=== PATIENT | male | born 1950 | race Caucasian/White ===

== ENCOUNTER 2018-10-24 04:36 | Emergency (ER) | payer MEDICARE | END 2018-10-24 05:10 | disposition home or self-care (01) | LOC: ERS 04:36 | DX: T83.031A Leakage of indwelling urethral catheter, initial encounter (principal); I10 Essential (primary) hypertension | CPT/HCPCS: 99283 ==

== ENCOUNTER 2019-07-30 18:41 | Inpatient (IN) | payer MEDICARE ==
[2019-07-30 21:02] LABS: CKMB 0.7 ng/mL (0-6.6)
[2019-07-30] MEDS ORDERED: Ondansetron PF 4 MG/2 ML Vial IVP PRN (22:51)
[2019-07-30] MEDS ORDERED: Ondansetron ODT 4 MG TAB SL PRN (22:51)
[2019-07-30] MEDS ORDERED: Acetaminophen 325 MG TAB PO PRN (22:51)
[2019-07-30] MEDS ORDERED: Piperacillin/Tazobactam 4.5 GM in Sodium Chloride 0.9% 100 ML IVPB SCH (23:59)
--- NOTE | 2019-07-31 01:10 | PDOC.FPRHP ---
- History of Present Illness Chief Complaint: fever, cough History of Present Illness: Patient is a 68M with PMHx of HTN, COPD, CHF, afib s/p pacemaker, cardiomyopathy , prostate cancer, stage 3 CKD who presents as a transfer from the [place] ED for CHF exacerbation, CATHERINE,and UTI. Patient was difficult to arouse during the exam, and was a poor historian A& Ox2. He was able to report that he has had a cough, and that he denies cp or sob. ED Course: Was on cpap at the [place] ED and was satting 82%, until it was discovered that the machine was not hooked up properly. On RA the patient was able to maintain oxygen saturation on RA. He also received a dose of zosyn and 40 of lasix. He received vanc and zosyn here for a possible pna - Allergies/Adverse Reactions Allergies Allergy/AdvReac Type Severity Reaction Status Date / Time No Known Allergies Allergy Verified 07/30/19 23:27 - Home Medications Medication Instructions Recorded Confirmed Type Bicalutamide [Casodex] 50 mg PO DAILY #30 tab 03/07/17 07/30/19 Rx Tamsulosin HCl [Flomax] 0.4 mg PO DAILY #30 cap 03/07/17 07/31/19 Rx Aspirin [Ecotrin Low Strength] 81 mg PO DAILY #30 tab 07/09/17 07/31/19 Rx Carvedilol [Coreg] 6.25 mg PO BID-WM #60 tab 07/10/17 07/31/19 Rx Furosemide [Lasix] 40 mg PO BID #60 tab 07/10/17 07/31/19 Rx Clopidogrel Bisulfate [Clopidogrel] 75 mg PO DAILY 07/30/19 07/31/19 History Acetaminophen 650 mg PO Q4HR PRN 07/31/19 07/31/19 History Atorvastatin Calcium 40 mg PO DAILY 07/31/19 07/31/19 History Isosorbide Mononitrate [Isosorbide 30 mg PO DAILY 07/31/19 07/31/19 History Mononitrate ER] Nitroglycerin [Nitrostat] 0.4 mg SL ASDIR PRN 07/31/19 07/31/19 History Oxybutynin [Ditropan] 5 mg PO TID 07/31/19 07/31/19 History Pantoprazole Sodium 40 mg PO DAILY 07/31/19 07/31/19 History traMADol HCl [Tramadol HCl] 50 mg PO Q6HR PRN 07/31/19 07/31/19 History - History PMHx: HTN, COPD, CHF, afib s/p pacemaker, cardiomyopathy, prostate cancer, stage 3 CKD, bilateral hydronephrosis PSHx: colon resection, pacemaker, skin graft? FHx: unable to determine Social: negative - Vital signs BP: [123/75] HR: [80] RR: [18] Tmax: [102.1] Pox: [98]% on [ra] Wt: [101.9kg] - Physical Exam Constitutional: NAD, well developed -Constitutional: A&Ox2 HEENT: normocephalic and atraumatic, grossly normal hearing Neck: supple, trachea midline Chest: no-tender to palpation, no lesions Heart: pulses present -Heart: paced -Lungs: poor air movement, crackles on lower lobes bilaterally Abdomen: soft, non-tender, bowel sounds present Musculoskeletal: normal structure, normal tone Neurological: no focal deficit, normal sensation Skin: no rash/lesions -Skin: poor skin turgor, delayed cap refill Heme/Lymphatic: no unusual bruising or bleeding, no purpura Psychiatric: other (poor intact memory) FMR H&P: Results - Labs Result Diagrams: 07/31/19 05:10 08/03/19 04:19 Lab results: Lactic Acid 1.2 mmol/L (0.5-2.2) 07/30/19 20:12 CK-MB (CK-2) 0.7 ng/mL (0-6.6) 07/30/19 20:12 - Radiology Interpretation Chest x-ray Status: image reviewed by me (no acute cardiopulmonary process, however the image is poor quality), report reviewed by me FMR H&P: A/P - Problem List (1) Acute exacerbation of CHF (congestive heart failure) Current Visit: Yes Status: Acute Code(s): I50.9 - HEART FAILURE, UNSPECIFIED (2) Abnormal cardiac enzyme level Current Visit: No Status: Acute Code(s): R74.8 - ABNORMAL LEVELS OF OTHER SERUM ENZYMES (3) Prostate cancer Current Visit: No Status: Chronic Code(s): C61 - MALIGNANT NEOPLASM OF PROSTATE Comment: Urology following.On Casodex (4) UTI (urinary tract infection) Current Visit: No Status: Acute (5) CKD (chronic kidney disease) stage 3, GFR 30-59 ml/min Current Visit: No Status: Chronic Code(s): N18.3 - CHRONIC KIDNEY DISEASE, STAGE 3 (MODERATE) (6) Cardiorenal syndrome Current Visit: Yes Status: Acute Code(s): I13.10 - HYP HRT & CHR KDNY DIS W/ O HRT FAIL, W STG 1-4/UNSP CHR KDNY (7) Encephalopathy Current Visit: Yes Status: Acute Code(s): G93.40 - ENCEPHALOPATHY, UNSPECIFIED (8) Acute kidney injury superimposed on CKD Current Visit: Yes Status: Acute Code(s): N17.9 - ACUTE KIDNEY FAILURE, UNSPECIFIED; N18.9 - CHRONIC KIDNEY DISEASE, UNSPECIFIED - Plan Patient is a 68M with PMHx of HTN, COPD, CHF, afib s/p pacemaker, cardiomyopathy , prostate cancer, stage 3 CKD who presents as a transfer from the [place] ED for CHF exacerbation, CATHERINE,and UTI. #Acute on chronic diastolic CHF exacerbation -patient's BNP 2895 -bilateral lower lobe crackles on exam -patient's cough likely 2/2 fluid overload -IV lasix, titrate as necessary -last echo in 2016, suggestive of diastolic heart failure, repeat ordered #CATHERINE on CKD stage 3 #cardiorenal syndrome -creatinine 2.21, baseline around 1.5 -GFR 30, was 46 on 05/06/19 -likely due to fluid overload -will continue to monitor for improvement with diuresis #UTI -received zosyn, vanc, and levaquin in ED -last few urine cultures were resistant to streptomycin, erythromycin, and tetracycline -switched to rocephin -will continue to monitor #NSTEMI type 2 secondary to demand -troponins elevated 0.032>0.041>0.037, improved with lasix -EKG showed no acute changes -patient denied cp #encephalopathy -patient was difficult to arouse on exam, a&ox2 -nobody was with patient during evaluation, will f/u patient's baseline and monitor possible improvement with abx DVT proph: lovenox Diet: HH Dispo: inpatient for CHF exacerbation and CATHERINE management and iv abx tx of UTI Code: Full FMR H&P: Upper Level - Pertinent history 68 yo m Here as transfer from [facility] with concern for CHF exacerbation. At the time of this H&P pt was unable to reliably answer questions and it is unclear if this is his baseline. Per ER/NH records, he has been coughing for the past week and was sent to the ER for possible PNA. While there he was apparently hypoxic, however this was never documented. He also had a fever as high as 102.6. He was transferred here with concern for CHF exacerbation and possible PNA. In the ED he received Zosyn, Vanc, and Levaquin PMHx HLD HTN CAD CHF GERD BPH CKD3 Afib Surgical hx Colon resection Skin graft Pace maker placement Social Hx Unable to determine - Pertinent findings See commercial intern note for full ROS, PE, vitals, and labs ROS unreliable dt mental status General denies fever or chills CV Denies CP, palpitation, or peripheral edema Resp Denies of SOB or cough GI Denies n/v/d or abdominal pain denies increased frequency or dysuria PE General A&O to place and self, NAD HEENT NCAT, PERRLA CV RRR no murmur Resp crackles in L base. Decreased breath sounds throughouth Abd non tender, no distension, normal BS Extremities 1+ pitting edema to knee b/l, healing skin graft on L anterior thigh and posterior L wrist Neuro No focal deficits, normal strength astudillo in place - Plan Date/Time: 07/31/19 0110 IJeovanny DO, have evaluated this patient and agree with findings/plan as outlined by commercial intern resident. Pertinent changes/additions are listed here. 1.CHF exacerbation -IV Lasix and strict I/O. No O2 requirement at this time -Restart home meds -Echo, most recent known is in 2017 and found EF of 40-45% and diastolic failure -CXR here is not c/w PNA, will deescalate abx at this time 2.UTI -IV rocephin -Urine cx pending -Likely related to chronic Astudillo 3.CATHERINE on CKD -Like cardio renal syndrome -Repeat BMP in am 4.NSTEMI type 2 secondary to demand -Down trending. Likely related to overload 5.Encephalopathy -Unclear what patients baseline is, will discuss with Dr Carson in the morning See commercial intern note for management of other chronic problems PPx SCD Diet HH Code Full Addendum - Attending - Attending Attestation Date/Time: 08/03/19 5602 I personally evaluated the patient and discussed the management with Dr. Young and team at day of admission. I agree with the History, Examination, Assessment and Plan documented above with any addition or exceptions noted below.
[2019-07-31] MEDS: cefTRIAXone\\ROCEPHIN 1 GM in Sodium Chloride 0.9% 100 ML IVPB SCH (01:59)
[2019-07-31] MEDS ORDERED: Nitroglycerin 0.4 MG TAB (25 Tab Bottle) SL PRN (04:32)
[2019-07-31] MEDS ORDERED: traMADol HCl 50 MG TAB PO PRN (04:32)
[2019-07-31 05:37] LABS: #Neutrophils 6.6 thou/uL (1.40-6.50); %Basophils 0.9 % (0.0-1.0); %Eosinophils 0.1 % (0.0-10.0); %Lymphocytes 4.8 % (21.0-51.0); %Monocytes 3.1 % (0.0-10.0); Hemoglobin 12.8 g/dL (14.0-18.0); Mean Corpuscular HGB CONC 31.5 g/dL (32.0-36.0); Mean Corpuscular Hemoglobin 26.5 pg (27.0-31.0); Mean Platelet Volume 9.2 fL (7.4-10.4); Platelet Count 158 thou/uL (130-400); RBC Distribution Width 15.9 % (11.5-14.5); Red Blood Cell (RBC) Count 4.84 mill/uL (4.70-6.10); White Blood Cell (WBC) Count 7.3 thou/uL (4.8-10.8)
[2019-07-31 05:38] LABS: #Basophils 0.1 thou/uL (0.0-0.2); #Lymphocytes 0.4 thou/uL (1.20-3.40); #Monocytes 0.2 thou/uL (0.11-0.59)
[2019-07-31] MEDS: Furosemide 20 MG/2 ML VIAL SLOW IVP SCH ×2 (05:46→13:56)
[2019-07-31 05:58] LABS: Anion Gap 14 mmol/L (10-20); BUN (Urea Nitrogen) 38 mg/dL (8.4-25.7); Calc. Creatinine Clearance 46 mL/min (70-130); Calcium 9.4 mg/dL (7.8-10.44); Carbon Dioxide 23 mmol/L (23-31); Chloride 102 mmol/L (98-107); Estimated GFR-MDRD 32; Glucose 127 mg/dL (80-115); Potassium 3.8 mmol/L (3.5-5.1); Sodium 135 mmol/L (136-145)
--- NOTE | 2019-07-31 06:04 | PDOC.FM ---
- Subjective Subjective: Pt states he can only walk 15-20 feet before becoming SOB. C/o awakening at night with PND. Denies orthopnea, or increase in LE swelling. Denies chest pain. Denies any dysuria or hematuria. Denies any pain this morning. States his SOB is much better than yesterday. - Objective MAR Reviewed: Yes Vital Signs & Weight: Vital Signs (12 hours) Temp Pulse Resp BP BP Pulse Ox 07/31/19 03:55 98.2 F 80 19 112/56 L 96 07/31/19 03:30 94 L 07/30/19 23:10 82 20 93 L 07/30/19 22:55 97.7 F 80 20 105/65 89 L Weight Weight 97.704 kg I&O: 07/29/19 07/30/19 07/31/19 06:59 06:59 06:59 Intake Total 100 Output Total 1000 Balance -900 Result Diagrams: 07/31/19 05:10 07/31/19 05:10 Radiology Reviewed by me: Yes (cardiomegaly on CXR) Phys Exam - Physical Examination Constitutional: NAD HEENT: moist MMs, sclera anicteric Neck: no nodes, supple, full ROM JVD present Respiratory: no wheezing slight bibasilar crackeles Cardiovascular: RRR, no significant murmur, no rub Gastrointestinal: soft, non-tender, no distention, positive bowel sounds Musculoskeletal: no edema, pulses present Neurological: non-focal, normal sensation, moves all 4 limbs Psychiatric: normal affect Deviation from normal: A&O X2. States the month is either July or August. Skin: no rash, cap refill <2 seconds Dx/Plan (1) Acute exacerbation of CHF (congestive heart failure) Code(s): I50.9 - HEART FAILURE, UNSPECIFIED Status: Acute (2) Acute kidney injury superimposed on CKD Code(s): N17.9 - ACUTE KIDNEY FAILURE, UNSPECIFIED; N18.9 - CHRONIC KIDNEY DISEASE, UNSPECIFIED Status: Acute (3) Cardiorenal syndrome Code(s): I13.10 - HYP HRT & CHR KDNY DIS W/O HRT FAIL, W STG 1-4/UNSP CHR KDNY Status: Acute (4) A-fib Code(s): I48.91 - UNSPECIFIED ATRIAL FIBRILLATION Status: Acute (5) UTI (urinary tract infection) Status: Acute (6) CKD (chronic kidney disease) stage 3, GFR 30-59 ml/min Code(s): N18.3 - CHRONIC KIDNEY DISEASE, STAGE 3 (MODERATE) Status: Chronic (7) Chronic diastolic CHF (congestive heart failure) Code(s): I50.32 - CHRONIC DIASTOLIC (CONGESTIVE) HEART FAILURE Status: Chronic (8) Prostate cancer Code(s): C61 - MALIGNANT NEOPLASM OF PROSTATE Status: Chronic (9) Troponin level elevated Code(s): R74.8 - ABNORMAL LEVELS OF OTHER SERUM ENZYMES Status: Resolved - Plan Plan: Patient is a 68M with PMHx of HTN, COPD, CHF, afib s/p pacemaker, cardiomyopathy , prostate cancer, stage 3 CKD who presents as a transfer from the [place] ED for CHF exacerbation, CATHERINE,and UTI. 1. Acute on chronic diastolic CHF exacerbation - Dyspnea on exertion of walking 15-20 feet, PND -patient's BNP 2895, CXR: cardiomegaly, AICD -bibasilar crackles on exam -patient's cough likely 2/2 volume overload, Procal 0.96, Will trend at 6 hours to monitor for infection. Given Vanc, Zosyn and levoquin in ED. -IV lasix 20 mg BID, titrate as necessary -last echo in 2017, suggestive of diastolic heart failure with EF of 40-45%, repeat ordered - Continue ASA, Clopidogrel, Imdur, Nitroglycerin, Carvedilol 2. CATHERINE on CKD stage 3 - Most likely caused by cardiorenal syndrome -creatinine 2.21, baseline 1.5-1.8 -GFR 30, was 46 on 05/06/19 -likely due to #1 -will continue to monitor for improvement post lasix. 3. UTI -received zosyn, vanc, and levaquin in ED -Previous urine cultures were resistant to streptomycin, erythromycin, and tetracycline -Continue Rocephin 3. Elevated troponins, most likely from increased cardiac wall/myocyte stress from volume overload. -troponins elevated 0.032>0.041>0.037, improved with lasix. Etiology likely secondary to CHF exacerbation and CKD stage 3 -EKG showed no acute changes -No subjective chest pain 4. Hx of COPD 5. Hx of A. Fib 6. S/P AICD Placement 7. Hx of Prostate CA - Bilateral hydronephrosis - Obstructive uropathy - Continue Casodex, tamsulosin and oxybutynin 8. Hx of HTN DVT proph: lovenox Diet: HH Code: Full Dispo: Stable, inpatient for CHF exacerbation, CATHERINE management and iv abx tx of UTI Addendum - Attending - Attending Attestation Date/Time: 07/31/19 1038 I personally evaluated the patient and discussed the management with Dr. Becerra. I agree with the History, Examination, Assessment and Plan documented above with any addition or exceptions noted below. Patient with with possible CHF exacerbation. Continue diuresis, Echo pending. Previously only had dCHF but will see if that has changed. He also has evidence of UTI and is on abx and will await cx. Feeling better today. Continue to monitor. No NSTEMI type 2 diagnosis made as no chest pain and no EKG changes suggestive of true acute ischemia.
[2019-07-31] MEDS: Oxybutynin 5 MG TAB PO SCH ×3 (09:34→20:16)
[2019-07-31] MEDS: Bicalutamide 50 MG TAB PO SCH (09:34)
[2019-07-31] MEDS: Enoxaparin Sodium 30 MG/0.3 ML SYRINGE SC SCH (09:35)
[2019-07-31] MEDS: Aspirin 81 mg Enteric Coated Tablet PO SCH (09:35)
[2019-07-31] MEDS: Tamsulosin HCl 0.4 MG CAP PO SCH (09:35)
[2019-07-31] MEDS: Isosorbide Mononitrate (ER) 30 MG TAB PO SCH (09:35)
[2019-07-31] MEDS: Clopidogrel Bisulfate 75 MG TAB PO SCH (09:35)
[2019-07-31] MEDS: Carvedilol 6.25 MG TAB PO SCH ×2 (09:35→16:16)
[2019-07-31] MEDS: Atorvastatin Calcium 40 MG TAB PO SCH (10:58)
[2019-08-01] MEDS: cefTRIAXone\\ROCEPHIN 1 GM in Sodium Chloride 0.9% 100 ML IVPB SCH (03:36)
--- NOTE | 2019-08-01 06:11 | PDOC.FM ---
- Subjective Subjective: Patient states he is slightly SOB at rest. He denies any chest pain or cough. Pt echo 10-15% EF result. Stable vitals. I/O: 1282/1775 measured via astudillo cath. - Objective MAR Reviewed: Yes Vital Signs & Weight: Vital Signs (12 hours) Temp Pulse Resp BP Pulse Ox 08/01/19 05:00 113/62 07/31/19 21:00 98.5 F 80 18 142/56 H 94 L 07/31/19 20:00 97 07/31/19 18:36 99.7 F H Weight Admit Weight 98.611 kg Weight 97.704 kg I&O: 07/30/19 07/31/19 08/01/19 06:59 06:59 06:59 Intake Total 100 1282 Output Total 1000 1775 Balance -900 -493 Result Diagrams: 07/31/19 05:10 08/01/19 05:15 Phys Exam - Physical Examination Constitutional: NAD HEENT: PERRLA, moist MMs, sclera anicteric Neck: no nodes, no JVD, supple, full ROM Respiratory: no wheezing, no rales, no rhonchi, clear to auscultation bilateral (improved from yesterday PE ) Cardiovascular: RRR, no rub soft systolic murmur Gastrointestinal: soft, non-tender, no distention, positive bowel sounds Musculoskeletal: pulses present Pitting LE 2+ edema. Neurological: non-focal, normal sensation, moves all 4 limbs Psychiatric: normal affect Skin: no rash, cap refill <2 seconds Dx/Plan (1) Acute exacerbation of CHF (congestive heart failure) Code(s): I50.9 - HEART FAILURE, UNSPECIFIED Status: Acute (2) Acute kidney injury superimposed on CKD Code(s): N17.9 - ACUTE KIDNEY FAILURE, UNSPECIFIED; N18.9 - CHRONIC KIDNEY DISEASE, UNSPECIFIED Status: Acute (3) Cardiorenal syndrome Code(s): I13.10 - HYP HRT & CHR KDNY DIS W/O HRT FAIL, W STG 1-4/UNSP CHR KDNY Status: Acute (4) A-fib Code(s): I48.91 - UNSPECIFIED ATRIAL FIBRILLATION Status: Acute (5) UTI (urinary tract infection) Status: Acute (6) CKD (chronic kidney disease) stage 3, GFR 30-59 ml/min Code(s): N18.3 - CHRONIC KIDNEY DISEASE, STAGE 3 (MODERATE) Status: Chronic (7) Chronic diastolic CHF (congestive heart failure) Code(s): I50.32 - CHRONIC DIASTOLIC (CONGESTIVE) HEART FAILURE Status: Chronic (8) Prostate cancer Code(s): C61 - MALIGNANT NEOPLASM OF PROSTATE Status: Chronic (9) Troponin level elevated Code(s): R74.8 - ABNORMAL LEVELS OF OTHER SERUM ENZYMES Status: Resolved - Plan Plan: Patient is a 68M with PMHx of HTN, COPD, CHF, afib s/p pacemaker, cardiomyopathy , prostate cancer, stage 3 CKD who presents as a transfer from the [place] ED for CHF exacerbation, CATHERINE,and UTI. 1. Acute on chronic diastolic CHF exacerbation - Dyspnea on exertion of walking 15-20 feet, PND -patient's BNP 2895, CXR: cardiomegaly, AICD -bibasilar crackles on exam -patient's cough likely 2/2 volume overload, Procal 0.96--> 1.08--> 0.82. Given Vanc, Zosyn and levoquin in ED. -IV lasix 20 mg BID, titrate as necessary -last echo in 2017, suggestive of diastolic heart failure with EF of 40-45% - Echo this admission: EF 10-15%, Grade 3/3 Diastolic Dysfunction. LV and LA severely increased size. Dilated RV with decreased RV systolic function. Mild- Mod aortic stenosis, SMITHA 1.39 cm sq. RV systolic pressure 36 mmHG. - Continue ASA, Clopidogrel, Imdur, Nitroglycerin, Carvedilol 2. CATHERINE on CKD stage 3 - Most likely caused by cardiorenal syndrome -creatinine 2.21, baseline 1.5-1.8, Cr 1.92 on 08/01. -GFR 30, was 46 on 05/06/19 -likely due to #1 -will continue to monitor for improvement post lasix. 3. UTI -received zosyn, vanc, and levaquin in ED -Previous urine cultures were resistant to streptomycin, erythromycin, and tetracycline -Continue Rocephin 3. Elevated troponins, most likely from increased cardiac wall/myocyte stress from volume overload. -troponins elevated 0.032>0.041>0.037, improved with lasix. Etiology likely secondary to CHF exacerbation and CKD stage 3 -EKG showed no acute changes -No subjective chest pain 4. Hx of COPD 5. Hx of A. Fib 6. S/P AICD Placement 7. Hx of Prostate CA - Bilateral hydronephrosis - Obstructive uropathy - Continue Casodex, tamsulosin and oxybutynin - Astudillo urinary cath placed 8. Hx of HTN DVT proph: lovenox Diet: HH Code: Full Dispo: Stable, inpatient for CHF exacerbation, CATHERINE management and iv abx tx of UTI Addendum - Attending - Attending Attestation Date/Time: 08/01/19 0702 I personally evaluated the patient and discussed the management with Dr. Becerra. I agree with the History, Examination, Assessment and Plan documented above with any addition or exceptions noted below. Patient here for concerns of CHF exacerbation. His repeat echo now shows worsening EF and elevated RV pressure. He will need cardiology input at some point during the hospitalization, as well as med augmentation to ensure we are treating his sHF appropriately. He probably needs Lifevest bridge to AICD. He also had some fever and evidence of UTI which we are continuing abx for and awaiting cultures. PCT downtrending and renal function overall stable.
[2019-08-01] MEDS: Furosemide 20 MG/2 ML VIAL SLOW IVP SCH ×2 (06:14→14:23)
[2019-08-01 06:29] LABS: Anion Gap 15 mmol/L (10-20); BUN (Urea Nitrogen) 46 mg/dL (8.4-25.7); Calc. Creatinine Clearance 50 mL/min (70-130); Calcium 9.4 mg/dL (7.8-10.44); Carbon Dioxide 24 mmol/L (23-31); Chloride 100 mmol/L (98-107); Estimated GFR-MDRD 35; Glucose 119 mg/dL (80-115); Potassium 3.6 mmol/L (3.5-5.1); Sodium 135 mmol/L (136-145)
[2019-08-01] MEDS: Carvedilol 6.25 MG TAB PO SCH ×2 (09:14→16:20)
[2019-08-01] MEDS: Aspirin 81 mg Enteric Coated Tablet PO SCH (09:15)
[2019-08-01] MEDS: Oxybutynin 5 MG TAB PO SCH ×3 (09:15→20:11)
[2019-08-01] MEDS: Tamsulosin HCl 0.4 MG CAP PO SCH (09:15)
[2019-08-01] MEDS: Isosorbide Mononitrate (ER) 30 MG TAB PO SCH (09:15)
[2019-08-01] MEDS: Clopidogrel Bisulfate 75 MG TAB PO SCH (09:15)
[2019-08-01] MEDS: Enoxaparin Sodium 30 MG/0.3 ML SYRINGE SC SCH (09:15)
[2019-08-01] MEDS: Atorvastatin Calcium 40 MG TAB PO SCH (09:15)
[2019-08-01] MEDS: Bicalutamide 50 MG TAB PO SCH (09:15)
[2019-08-01] MEDS ORDERED: Lisinopril 2.5 MG TAB PO SCH ×2 (10:03→10:15)
--- NOTE | 2019-08-01 10:41 | RAD ---
Chest one view HISTORY: Cough. COMPARISON: 07/30/2019. FINDINGS: Cardiac silhouette is magnified and enlarged. Pulmonary vasculature slightly less engorged than on the prior study, but patchy bibasilar infiltrates persist. Mediastinum is midline with aortic calcification and a multi lead left subclavian cardiac electronic device. No evidence of pneum othorax. IMPRESSION: Cardiomegaly and pulmonary vascular congestion. Consider CHF.
--- NOTE | 2019-08-01 17:29 | CON ---
DATE OF CONSULTATION: 08/01/2019 REASON FOR CONSULTATION: New-onset cardiomyopathy. HISTORY OF PRESENT ILLNESS: Mr. French is a pleasant 68-year-old white gentleman, who comes to the hospital for coughing. He is coughing and short of breath for the last few weeks. He was found to be in heart failure with elevated BNP. Echocardiogram was done that showed an EF of 10% to 15%, so Cardiology has been consulted for this. He had an echo back in 2017. At that point, he was seen by Dr. Santoyo. He had an EF of 40% to 45%. Apparently, he follows with . received a pacemaker, he is not aware of why. He does not recall being told that he had a weak heart, even though his echos here have all showed an EF of 40% to 45%. At one point, he had a Mobitz type 2 block, seen by Dr. Acevedo. He was just taken off his beta tanya at that time. More than likely, he recurred and had to have a pacemaker placed. This was not done here in this hospital. Currently, he is feeling much better, he has been diuresed, and his breathing is back to normal. He is off the any oxygen supplementation. Cardiology has been consulted as this is a new finding. PAST MEDICAL HISTORY: 1. Cardiomyopathy in the past, unknown if it is ischemic versus nonischemic, EF at 40% to 45% before, now at 10% to 15%. 2. Hypertension. 3. COPD. 4. History of atrial fibrillation. 5. Prostate cancer. 6. Stage 3 CKD. 7. Bilateral hydronephrosis. PAST SURGICAL HISTORY: 1. Colon resection. 2. Pacemaker placement. 3. Skin grafting. FAMILY HISTORY: No early coronary artery disease. SOCIAL HISTORY: No alcohol, tobacco, or drugs. OUTPATIENT MEDICATIONS: 1. Bicalutamide. 2. Tamsulosin. 3. Aspirin 81 a day. 4. Carvedilol 6.25 b.i.d. 5. Lasix 40 mg b.i.d. 6. Plavix 75 mg a day. 7. Acetaminophen p.r.n. 8. Atorvastatin 40 mg a day. 9. Imdur 30 mg a day. 10. Sublingual nitroglycerin p.r.n. 11. Oxybutynin. 12. Pantoprazole. 13. Tramadol p.r.n. ALLERGIES: NO KNOWN DRUG ALLERGIES. REVIEW OF SYSTEMS: A 12-point review of systems was done and was all negative unless stated in the history of present illness. PHYSICAL EXAMINATION: VITAL SIGNS: Temperature 97.5, pulse 79, respiratory rate 20, saturating 93% on room air, and blood pressure 102/55. GENERAL: Awake, alert, and oriented x3. In no distress. HEENT: Normocephalic, atraumatic. NECK: Supple. LUNGS: Clear. CARDIOVASCULAR: S1 and S2. No S3 or S4. Heart rate in the 80s. ABDOMEN: Soft. Positive bowel sounds. EXTREMITIES: 1+ edema. SKIN: Warm and dry. LABORATORY DATA: Laboratory work was reviewed. White count of 7, hemoglobin of 12, hematocrit 40, and platelet count of 158. Chemistry with a sodium of 135, potassium 3.8, chloride 102, carbon dioxide 23, anion gap of 14, BUN of 38, creatinine of 2.0, now down to 1.92, on admission he was at 2.21 which is slowly being coming down. Troponin has been at 0.04, now 0.03. Urine culture was positive for Pseudomonas, gram-positive cocci, second different brings a positive cocci and Proteus mirabilis. Chest x-ray showed a pacemaker in place with enlarged cardiac silhouette. Pulmonary vascular is engorged. ASSESSMENT AND PLAN: 1. Dilated cardiomyopathy, ejection fraction at 10% to 15% on echo done yesterday. This is new onset as far as we are concerned function. We will try to get records from [facility] to see how new this really is. He may have had ischemic evaluation recently there as well. 2. Continue outpatient regimen, which is actually optimal for systolic dysfunction. We will an KERMIT inhibitor or Entresto added to his regimen if blood pressure allows. 3. Further recommendations per records from [facility]. Job ID: [id number]
[2019-08-02] MEDS: cefTRIAXone\\ROCEPHIN 1 GM in Sodium Chloride 0.9% 100 ML IVPB SCH (01:31)
[2019-08-02] MEDS: Furosemide 20 MG/2 ML VIAL SLOW IVP SCH ×2 (05:38→15:12)
[2019-08-02 05:52] LABS: Anion Gap 13 mmol/L (10-20); BUN (Urea Nitrogen) 40 mg/dL (8.4-25.7); Calc. Creatinine Clearance 63 mL/min (70-130); Calcium 8.9 mg/dL (7.8-10.44); Carbon Dioxide 24 mmol/L (23-31); Chloride 102 mmol/L (98-107); Estimated GFR-MDRD 45; Glucose 103 mg/dL (80-115); Potassium 3.3 mmol/L (3.5-5.1); Sodium 136 mmol/L (136-145)
--- NOTE | 2019-08-02 05:52 | PDOC.FM ---
- Subjective Subjective: Pt resting well. C/O slight SOB at rest, denies chest pain. I/O: - Objective MAR Reviewed: Yes Vital Signs & Weight: Vital Signs (12 hours) Temp Pulse Resp BP Pulse Ox 08/02/19 04:36 98.0 F 79 14 119/74 98 08/02/19 03:30 95 08/01/19 21:00 97.8 F 80 18 117/61 95 08/01/19 20:00 95 Weight Admit Weight 98.611 kg Weight 97.704 kg I&O: 07/31/19 08/01/19 08/02/19 06:59 06:59 06:59 Intake Total 100 1282 1670 Output Total 1000 1775 1999 Balance -662 -860 -361 Result Diagrams: 07/31/19 05:10 08/02/19 04:49 Phys Exam - Physical Examination Constitutional: NAD HEENT: PERRLA, moist MMs, sclera anicteric Neck: no nodes, supple, full ROM Respiratory: no wheezing, no rales, no rhonchi, clear to auscultation bilateral (Lungs clincally improved on auscultation. ) Cardiovascular: RRR, no rub soft systolic murmur. Gastrointestinal: soft, non-tender, no distention, positive bowel sounds Musculoskeletal: pulses present, edema present (BLE pitting ) Neurological: non-focal, normal sensation, moves all 4 limbs Skin: no rash, normal turgor, cap refill <2 seconds Dx/Plan (1) Dilated cardiomyopathy Code(s): I42.0 - DILATED CARDIOMYOPATHY Status: Acute (2) Acute exacerbation of CHF (congestive heart failure) Code(s): I50.9 - HEART FAILURE, UNSPECIFIED Status: Acute (3) Acute kidney injury superimposed on CKD Code(s): N17.9 - ACUTE KIDNEY FAILURE, UNSPECIFIED; N18.9 - CHRONIC KIDNEY DISEASE, UNSPECIFIED Status: Acute (4) Cardiorenal syndrome Code(s): I13.10 - HYP HRT & CHR KDNY DIS W/O HRT FAIL, W STG 1-4/UNSP CHR KDNY Status: Acute (5) A-fib Code(s): I48.91 - UNSPECIFIED ATRIAL FIBRILLATION Status: Acute (6) UTI (urinary tract infection) Status: Acute (7) CKD (chronic kidney disease) stage 3, GFR 30-59 ml/min Code(s): N18.3 - CHRONIC KIDNEY DISEASE, STAGE 3 (MODERATE) Status: Chronic (8) Chronic diastolic CHF (congestive heart failure) Code(s): I50.32 - CHRONIC DIASTOLIC (CONGESTIVE) HEART FAILURE Status: Chronic (9) Prostate cancer Code(s): C61 - MALIGNANT NEOPLASM OF PROSTATE Status: Chronic (10) Troponin level elevated Code(s): R74.8 - ABNORMAL LEVELS OF OTHER SERUM ENZYMES Status: Resolved - Plan Plan: Patient is a 68M with PMHx of HTN, COPD, CHF, afib s/p pacemaker, cardiomyopathy , prostate cancer, stage 3 CKD who presents as a transfer from the [place] ED for CHF exacerbation, CATHERINE,and UTI. 1. Acute on chronic diastolic CHF exacerbation - Dyspnea on exertion of walking 15-20 feet, PND -patient's BNP 2895, CXR: cardiomegaly, Pacemaker -initially bibasilar crackles on exam, clinically improved 08/02 -patient's cough likely 2/2 volume overload, Procal 0.96--> 1.08--> 0.82 --> 0.41. Given Vanc, Zosyn and levoquin in ED. -IV lasix 20 mg BID, titrate as necessary -last echo in 2017, suggestive of diastolic heart failure with EF of 40-45% - Echo this admission: EF 10-15%, Grade 3/3 Diastolic Dysfunction. LV and LA severely increased size. Dilated RV with decreased RV systolic function. Mild- Mod aortic stenosis, SMITHA 1.39 cm sq. RV systolic pressure 36 mmHG. - Continue ASA, Clopidogrel, Imdur, Nitroglycerin, Carvedilol 2. Dilated Cardiomyopathy - Echo this admission: EF 10-15%, Grade 3/3 Diastolic Dysfunction. LV and LA severely increased size. Dilated RV with decreased RV systolic function. Mild- Mod aortic stenosis, SMITHA 1.39 cm sq. RV systolic pressure 36 mmHG. - Added KERMIT-I,Lisinopril 2.5 mg to regimen. - Cards following pt. 3. CATHERINE on CKD stage 3 - Most likely caused by cardiorenal syndrome -creatinine 2.21, baseline 1.5-1.8, Cr 1.92 on 08/01., Cr on 08/01 1.53. -GFR 30, was 46 on 05/06/19 -likely due to #1 -will continue to monitor for improvement post lasix. 4. UTI -received zosyn, vanc, and levaquin in ED -Previous urine cultures were resistant to streptomycin, erythromycin, and tetracycline -Continue Rocephin 5. Elevated troponins, most likely from increased cardiac wall/myocyte stress from volume overload. -troponins elevated 0.032>0.041>0.037, improved with lasix. Etiology likely secondary to CHF exacerbation and CKD stage 3 -EKG showed no acute changes -No subjective chest pain 6. Hx of COPD 7. Hx of A. Fib 8. S/P Pacemaker Placement 9. Hx of Prostate CA - Bilateral hydronephrosis - Obstructive uropathy - Continue Casodex, tamsulosin and oxybutynin - Capellan urinary cath placed 10. Hx of HTN 11. Hx of Mobitz type 2 heart block - S/P Pacemaker placement DVT proph: lovenox Diet: HH Code: Full Dispo: Stable, inpatient for CHF exacerbation, CATHERINE management and iv abx tx of UTI Addendum - Attending - Attending Attestation Date/Time: 08/02/19 2476 I personally evaluated the patient and discussed the management with Dr. Becerra. I agree with the History, Examination, Assessment and Plan documented above with any addition or exceptions noted below. Patient here for presumed new onset sCHF in known history of dCHF. Records from [facility] requested. He is on correct regimen for CHF but is being diuresed. He is near euvolemia. Renal function continues to improve. He also continues on treatment for UTI. Awaiting sensitivities for his polymicrobial infection. Cardiology on board.
[2019-08-02] MEDS ORDERED: Potassium Chloride 20 MEQ TAB PO SCH (07:34)
[2019-08-02] MEDS: Atorvastatin Calcium 40 MG TAB PO SCH (08:00)
[2019-08-02] MEDS: Aspirin 81 mg Enteric Coated Tablet PO SCH (08:00)
[2019-08-02] MEDS: Lisinopril 2.5 MG TAB PO SCH (08:00)
[2019-08-02] MEDS: Oxybutynin 5 MG TAB PO SCH ×3 (08:00→21:03)
[2019-08-02] MEDS: Isosorbide Mononitrate (ER) 30 MG TAB PO SCH (08:00)
[2019-08-02] MEDS: Enoxaparin Sodium 30 MG/0.3 ML SYRINGE SC SCH (08:01)
[2019-08-02] MEDS: Clopidogrel Bisulfate 75 MG TAB PO SCH (08:01)
[2019-08-02] MEDS: Bicalutamide 50 MG TAB PO SCH (08:01)
[2019-08-02] MEDS: Tamsulosin HCl 0.4 MG CAP PO SCH (08:01)
[2019-08-02] MEDS: Carvedilol 6.25 MG TAB PO SCH ×2 (08:02→16:33)
[2019-08-02] MEDS: Piperacillin/Tazobactam 3.375 GM in Sodium Chloride 0.9% 100 ML IVPB SCH ×2 (16:33→21:02)
--- NOTE | 2019-08-02 18:52 | PDOC.CPN ---
- Subjective Date: 08/02/19 Time: 18:50 Interval history: He is doing well. Breathing is back to baseline. - Review of Systems General: denies: fever/chills, weight/appetite/sleep changes, night sweats, fatigue Respiratory: denies: cough, congestion, shortness of breath, exercise intolerance Cardiovascular: denies: chest pain, palpitation, edema, paroxysmal nocturnal dyspnea, orthopnea Gastrointestinal: denies: nausea, vomiting, diarrhea, constipation, abd pain, GI bleeding Musculoskeletal: denies: pain, tenderness, stiffness, swelling, arthritis/ arthralgias Neurological: denies: numbness, syncope, seizure, weakness - Objective Allergies/Adverse Reactions: Allergies Allergy/AdvReac Type Severity Reaction Status Date / Time No Known Allergies Allergy Verified 07/30/19 23:27 Visit Medications: Current Medications Aspirin (Ecotrin) 81 mg PO DAILY [facility] Last Admin: 08/02/19 08:00 Dose: 81 mg Atorvastatin Calcium (Lipitor) 40 mg PO DAILY [facility] Last Admin: 08/02/19 08:00 Dose: 40 mg Bicalutamide (Casodex) 50 mg PO DAILY [facility] Last Admin: 08/02/19 08:01 Dose: 50 mg Carvedilol (Coreg) 6.25 mg PO BID-[facility] Last Admin: 08/02/19 16:33 Dose: 6.25 mg Clopidogrel Bisulfate (Plavix) 75 mg PO DAILY [facility] Last Admin: 08/02/19 08:01 Dose: 75 mg Enoxaparin Sodium (Lovenox) 30 mg SC 0900 [facility] Last Admin: 08/02/19 08:01 Dose: 30 mg Furosemide (Lasix) 20 mg SLOW IVP 0600,1400 [facility] Last Admin: 08/02/19 15:12 Dose: 20 mg Piperacillin Sod/Tazobactam (Sod 3.375 gm/ Sodium Chloride) 100 mls @ 200 mls/ hr IVPB 0400,1000,1600,2200 [facility] Last Admin: 08/02/19 16:33 Dose: 100 mls Isosorbide Mononitrate (Imdur Er) 30 mg PO DAILY [facility] Last Admin: 08/02/19 08:00 Dose: 30 mg Lisinopril (Zestril) 2.5 mg PO DAILY [facility] Last Admin: 08/02/19 08:00 Dose: 2.5 mg Nitroglycerin (Nitrostat) 0.4 mg SL ASDIR PRN PRN Reason: Chest Pain Oxybutynin Chloride (Ditropan) 5 mg PO TID [facility] Last Admin: 08/02/19 15:12 Dose: 5 mg Pantoprazole Sodium (Protonix) 40 mg PO DAILY [facility] Last Admin: 08/02/19 08:01 Dose: 40 mg Tamsulosin HCl (Flomax) 0.4 mg PO DAILY [facility] Last Admin: 08/02/19 08:01 Dose: 0.4 mg Tramadol HCl (Ultram) 50 mg PO Q6HR PRN PRN Reason: Moderate Pain (4-6) Vital Signs & Weight: Vital Signs Temp Pulse Resp BP Pulse Ox 08/02/19 15:11 97.9 F 81 18 106/67 96 08/02/19 11:05 97.6 F 80 18 111/65 98 08/02/19 07:24 98.1 F 82 20 121/78 98 Admit Weight 217 lb 6.4 oz Weight 215 lb 6.4 oz - Physical Exam General: alert & oriented x3, appears well HEENT: mucus membranes moist, normocephaly Neck: supple neck, midline trachea Cardiac: regular rate and rhythm, no murmur Lungs: clear to auscultation, no wheeze, rales, rhonchi Neuro: grossly intact Abdomen: active bowel sounds, soft, non-tender Skin: clear Musculoskeletal: normal range of motion, no pain - Labs Result Diagrams: 07/31/19 05:10 08/02/19 04:49 Troponin/CKMB CK-MB (CK-2) 0.7 ng/mL (0-6.6) 07/30/19 20:12 Troponin I 0.037 ng/mL (< 0.028) H 07/30/19 23:11 - Telemetry Sinus rhythms and dysrhythmias: sinus rhythm - Assessment/Plan Assessment/Plan: 1. Dilated CM EF at 10-15% 2. Presnece of a PPM. 3. Hx of dilated CM awaiting records. 4. Acute on chronic systolic CHF. PLAN: - Awaiting records from [facility]. - Will interrogate PPM. - Continue IV lasix. - May need lifevest before discharge.
[2019-08-03] MEDS: Furosemide 20 MG/2 ML VIAL SLOW IVP SCH (05:00)
[2019-08-03] MEDS: Piperacillin/Tazobactam 3.375 GM in Sodium Chloride 0.9% 100 ML IVPB SCH ×4 (05:00→21:01)
[2019-08-03 06:03] LABS: Anion Gap 14 mmol/L (10-20); BUN (Urea Nitrogen) 34 mg/dL (8.4-25.7); Calc. Creatinine Clearance 63 mL/min (70-130); Calcium 9.1 mg/dL (7.8-10.44); Carbon Dioxide 26 mmol/L (23-31); Chloride 103 mmol/L (98-107); Estimated GFR-MDRD 44; Glucose 149 mg/dL (80-115); Potassium 3.3 mmol/L (3.5-5.1); Sodium 140 mmol/L (136-145)
--- NOTE | 2019-08-03 06:14 | PDOC.FM ---
- Subjective Subjective: Pt states his breathing is much better, denying any SOB this morning. Denies CP. States he feels overall much better. Tele monitor overnight: Bi-V paced, few PVC. rate 80's. no acute overnight events. - Objective MAR Reviewed: Yes Vital Signs & Weight: Vital Signs (12 hours) Temp Pulse Resp BP BP Pulse Ox 08/03/19 03:32 97.4 F L 80 14 125/79 97 08/03/19 03:21 97 08/02/19 20:00 97.9 F 80 18 108/70 98 Weight Admit Weight 98.611 kg Weight 98.911 kg I&O: 08/01/19 08/02/19 08/03/19 06:59 06:59 06:59 Intake Total 1284 4210 1420 Output Total 1436 4374 7255 Uxmhrey -234 -916 -8598 Result Diagrams: 07/31/19 05:10 08/03/19 04:19 Phys Exam - Physical Examination Constitutional: NAD HEENT: PERRLA, moist MMs, sclera anicteric Neck: no nodes, no JVD, supple, full ROM Respiratory: no wheezing, no rales, no rhonchi, clear to auscultation bilateral (lung auscultation clinically improved, no adventitious sounds today. ) Cardiovascular: RRR, no rub soft systolic murmur Gastrointestinal: soft, non-tender, no distention, positive bowel sounds Musculoskeletal: pulses present, edema present (improved pitting BLE edema ) Neurological: non-focal, normal sensation, moves all 4 limbs Skin: no rash, normal turgor, cap refill <2 seconds Dx/Plan (1) Dilated cardiomyopathy Code(s): I42.0 - DILATED CARDIOMYOPATHY Status: Acute (2) Acute exacerbation of CHF (congestive heart failure) Code(s): I50.9 - HEART FAILURE, UNSPECIFIED Status: Acute (3) Acute kidney injury superimposed on CKD Code(s): N17.9 - ACUTE KIDNEY FAILURE, UNSPECIFIED; N18.9 - CHRONIC KIDNEY DISEASE, UNSPECIFIED Status: Acute (4) Cardiorenal syndrome Code(s): I13.10 - HYP HRT & CHR KDNY DIS W/O HRT FAIL, W STG 1-4/UNSP CHR KDNY Status: Acute (5) A-fib Code(s): I48.91 - UNSPECIFIED ATRIAL FIBRILLATION Status: Acute (6) UTI (urinary tract infection) Status: Acute (7) CKD (chronic kidney disease) stage 3, GFR 30-59 ml/min Code(s): N18.3 - CHRONIC KIDNEY DISEASE, STAGE 3 (MODERATE) Status: Chronic (8) Chronic diastolic CHF (congestive heart failure) Code(s): I50.32 - CHRONIC DIASTOLIC (CONGESTIVE) HEART FAILURE Status: Chronic (9) Prostate cancer Code(s): C61 - MALIGNANT NEOPLASM OF PROSTATE Status: Chronic - Plan Plan: Patient is a 68M with PMHx of HTN, COPD, CHF, afib s/p pacemaker, cardiomyopathy , prostate cancer, stage 3 CKD who presents as a transfer from the [place] ED for CHF exacerbation, CATHERINE,and UTI. 1. Acute on chronic diastolic CHF exacerbation - Dyspnea on exertion of walking 15-20 feet, PND -patient's BNP 2895, CXR: cardiomegaly, Pacemaker -initially bibasilar crackles on exam, clinically improved 08/02 -patient's cough likely 2/2 volume overload, Procal 0.96--> 1.08--> 0.82 --> 0.41. Given Vanc, Zosyn and levoquin in ED. -IV lasix 20 mg BID, titrate as necessary -last echo in 2017, suggestive of diastolic heart failure with EF of 40-45% - Echo this admission: EF 10-15%, Grade 3/3 Diastolic Dysfunction. LV and LA severely increased size. Dilated RV with decreased RV systolic function. Mild- Mod aortic stenosis, SMITHA 1.39 cm sq. RV systolic pressure 36 mmHG. - Continue ASA, Clopidogrel, Imdur, Nitroglycerin, Carvedilol - Awaiting recs from [facility] - Dr. Santoyo recommends Life vest and f/u outpatient. 2. Dilated Cardiomyopathy - Echo this admission: EF 10-15%, Grade 3/3 Diastolic Dysfunction. LV and LA severely increased size. Dilated RV with decreased RV systolic function. Mild- Mod aortic stenosis, SMITHA 1.39 cm sq. RV systolic pressure 36 mmHG. - Added KERMIT-I,Lisinopril 2.5 mg to regimen. - Cards following pt. Appreciate recs. 3. CATHERINE on CKD stage 3 - Most likely caused by cardiorenal syndrome -creatinine 2.21, baseline 1.5-1.8, Cr 1.92 on 08/01., Cr on 08/01 1.53, on 08/03 1.56. -GFR 30, was 46 on 05/06/19 -likely due to #1 -will continue to monitor for improvement post lasix. 4. UTI -received zosyn, vanc, and levaquin in ED -Previous urine cultures were resistant to streptomycin, erythromycin, and tetracycline - Zosyn Started, as presumptive pseudomonas in urine. awaiting sensitivities. 5. Elevated troponins, most likely from increased cardiac wall/myocyte stress from volume overload. -troponins elevated 0.032>0.041>0.037, improved with lasix. Etiology likely secondary to CHF exacerbation and CKD stage 3 -EKG showed no acute changes -No subjective chest pain 6. Hx of COPD 7. Hx of A. Fib 8. S/P Pacemaker Placement - Awaiting interrogation 9. Hx of Prostate CA - Bilateral hydronephrosis - Obstructive uropathy - Continue Casodex, tamsulosin and oxybutynin - Capellan urinary cath placed 10. Hx of HTN 11. Hx of Mobitz type 2 heart block - S/P Pacemaker placement DVT proph: lovenox Diet: HH Code: Full Dispo: Stable, inpatient for CHF exacerbation, CATHERINE management and iv abx tx of UTI Addendum - Attending - Attending Attestation Date/Time: 08/03/191919 I personally evaluated the patient and discussed the management with Dr. Becerra. I agree with the History, Examination, Assessment and Plan documented above with any addition or exceptions noted below. Pt's lungs are clear. Will transition to PO lasix. Cardiology is recommending life vest. Pt's urine culture is growing pseudomonas but sensitivities are pending. He will continue IV antibiotics at this time. There is concern for possible prostatitis. Will have a SHARA this afternoon to further evaluate.
--- NOTE | 2019-08-03 06:55 | PDOC.CPN ---
- Subjective Date: 08/03/19 Time: 11:00 Interval history: No current complaints from pt. Breathing better. - Objective Allergies/Adverse Reactions: Allergies Allergy/AdvReac Type Severity Reaction Status Date / Time No Known Allergies Allergy Verified 07/30/19 23:27 Visit Medications: Current Medications Aspirin (Ecotrin) 81 mg PO DAILY [facility] Last Admin: 08/02/19 08:00 Dose: 81 mg Atorvastatin Calcium (Lipitor) 40 mg PO DAILY [facility] Last Admin: 08/02/19 08:00 Dose: 40 mg Bicalutamide (Casodex) 50 mg PO DAILY [facility] Last Admin: 08/02/19 08:01 Dose: 50 mg Carvedilol (Coreg) 6.25 mg PO BID-[facility] Last Admin: 08/02/19 16:33 Dose: 6.25 mg Clopidogrel Bisulfate (Plavix) 75 mg PO DAILY [facility] Last Admin: 08/02/19 08:01 Dose: 75 mg Enoxaparin Sodium (Lovenox) 30 mg SC 0900 [facility] Last Admin: 08/02/19 08:01 Dose: 30 mg Furosemide (Lasix) 20 mg SLOW IVP 0600,1400 [facility] Last Admin: 08/03/19 05:00 Dose: 20 mg Piperacillin Sod/Tazobactam (Sod 3.375 gm/ Sodium Chloride) 100 mls @ 200 mls/ hr IVPB 0400,1000,1600,2200 [facility] Last Admin: 08/03/19 05:00 Dose: 100 mls Isosorbide Mononitrate (Imdur Er) 30 mg PO DAILY [facility] Last Admin: 08/02/19 08:00 Dose: 30 mg Lisinopril (Zestril) 2.5 mg PO DAILY [facility] Last Admin: 08/02/19 08:00 Dose: 2.5 mg Nitroglycerin (Nitrostat) 0.4 mg SL ASDIR PRN PRN Reason: Chest Pain Oxybutynin Chloride (Ditropan) 5 mg PO TID [facility] Last Admin: 08/02/19 21:03 Dose: 5 mg Pantoprazole Sodium (Protonix) 40 mg PO DAILY [facility] Last Admin: 08/02/19 08:01 Dose: 40 mg Tamsulosin HCl (Flomax) 0.4 mg PO DAILY [facility] Last Admin: 08/02/19 08:01 Dose: 0.4 mg Tramadol HCl (Ultram) 50 mg PO Q6HR PRN PRN Reason: Moderate Pain (4-6) Vital Signs & Weight: Vital Signs Temp Pulse Resp BP BP Pulse Ox 08/03/19 03:32 97.4 F L 80 14 125/79 97 08/03/19 03:21 97 08/02/19 20:00 97.9 F 80 18 108/70 98 Admit Weight 217 lb 6.4 oz Weight 218 lb 1 oz - Physical Exam General: alert & oriented x3 Neck: supple neck Cardiac: regular rate and rhythm, no murmur Lungs: clear to auscultation Neuro: grossly intact Abdomen: active bowel sounds Skin: clear Musculoskeletal: no pain - Labs Result Diagrams: 07/31/19 05:10 08/03/19 04:19 Troponin/CKMB CK-MB (CK-2) 0.7 ng/mL (0-6.6) 07/30/19 20:12 Troponin I 0.037 ng/mL (< 0.028) H 07/30/19 23:11 - Assessment/Plan Assessment/Plan: New onset CM s/p Pacer H/o PAF AICD in place Pt has been in afib since june No ACT noted Check SW records On ACEI, BB, ASA, statin Recommend rate control and ACT Could CV but would need amiodarone loading for best results given low EF
[2019-08-03] MEDS ORDERED: Potassium Chloride 20 MEQ TAB PO SCH (09:15)
[2019-08-03] MEDS: Bicalutamide 50 MG TAB PO SCH (09:28)
[2019-08-03] MEDS: Clopidogrel Bisulfate 75 MG TAB PO SCH (09:29)
[2019-08-03] MEDS: Aspirin 81 mg Enteric Coated Tablet PO SCH (09:29)
[2019-08-03] MEDS: Isosorbide Mononitrate (ER) 30 MG TAB PO SCH (09:29)
[2019-08-03] MEDS: Lisinopril 2.5 MG TAB PO SCH (09:29)
[2019-08-03] MEDS: Carvedilol 6.25 MG TAB PO SCH ×2 (09:29→16:10)
[2019-08-03] MEDS: Oxybutynin 5 MG TAB PO SCH ×3 (09:29→20:53)
[2019-08-03] MEDS: Tamsulosin HCl 0.4 MG CAP PO SCH (09:30)
[2019-08-03] MEDS: Atorvastatin Calcium 40 MG TAB PO SCH (09:30)
[2019-08-03] MEDS: Enoxaparin Sodium 30 MG/0.3 ML SYRINGE SC SCH (09:30)
--- NOTE | 2019-08-03 13:08 | PQF ---
CLINICAL DOCUMENTATION IMPROVEMENT CLARIFICATION FORM: ICD-10 Updated PLEASE DO AN ADDENDUM TO THE PROGRESS NOTE WITH ANY DOCUMENTATION UPDATES OR ADDITIONS AND CARRY THROUGH TO DC SUMMARY. THANK YOU. DATE: 08/03/19 ATTN: DR. CANTRELL Patient is not septic. Please exercise your independent, professional judgment in responding to the clarification form. Clinical indicators are provided on the bottom of this form for your review Please check appropriate box(es): [ ] Sepsis due to: (Pna, UTI, gangrenous gall bladder, etc.) [ ] SIRS due to non-infectious process (please specify etiology) [ ] with organ dysfunction [ ] without organ dysfunction [ ] Severe sepsis with acute organ dysfunction of: (Examples: respiratory failure, encephalopathy, acute kidney failure, other) [ ] Localized infection without sepsis [ ] Other diagnosis [ ] Unable to determine In addition, please specify: Present on Admission (POA): [ ] Yes [ * ] No [ ] Unable to determine For continuity of documentation, please document condition throughout progress notes and discharge summary. Thank You. CLINICAL INDICATORS - SIGNS / SYMPTOMS / LABS ER NOTE 07/31: "SEPSIS" TEMP 102.1 (ER NOTE 07/31) RR 32 (ER NOTE 07/31) RISKS: UTI (PROGRESS NOTE 08/02) CATHERINE (PROGRESS NOTE 08/02) TREATMENT: IV VANCOMYCIN (ER 07/31) IV LEVAQUIN (ER 07/31) IV ZOSYN (08/02-PRESENT) SERIAL LABS (07/30-08/03) URINE CULTURES (07/31) CARDIAC MONITORING (This form is maintained as a part of the permanent medical record) 2014 [employer]. All Rights Reserved [email or web address] Office: [phone] [facility]
--- NOTE | 2019-08-03 13:17 | PQF ---
CLINICAL DOCUMENTATION IMPROVEMENT CLARIFICATION FORM: ICD-10 Updated PLEASE DO AN ADDENDUM TO THE PROGRESS NOTE WITH ANY DOCUMENTATION UPDATES OR ADDITIONS AND CARRY THROUGH TO DC SUMMARY. THANK YOU. DATE: 08/03/19 ATTN: DR. CANTRELL Patient is not encephalopathic. He is at his baseline mentation. Please exercise your independent, professional judgment in responding to the clarification form. Clinical indicators are provided on the bottom of this form for your review Please check appropriate box(s): [ ] Encephalopathy: Type: [ ] Acute [ ] Subacute [ ] Chronic Etiology: [ ] Hypertensive [ ] Metabolic [ ] Toxic [ ] Hepatic with Coma [ ] Hepatic w/o Coma [ ] Hypoxic [ ] Septic [ ] Drug induced: [ ] Unspecified [ ] in the setting of underlying dementia [ ] Other (please specify) [ ] Transient Alteration of Awareness [ ] Other diagnosis [ ] Unable to determine In addition, please specify: Present on Admission (POA): [ ] Yes [ ] No [ * ] Unable to determine For continuity of documentation, please document condition throughout progress notes and discharge summary. Thank You. CLINICAL INDICATORS - SIGNS / SYMPTOMS / LABS H&P 07/31: "ENCEPHALOPATHY" "PATIENT WAS DIFFICULT TO AROUSE DURING THE EXAM" "UNABLE TO RELIABLY ANSWER QUESTIONS AND IT IS UNCLEAR IF THIS IS HIS BASELINE" RISKS: UTI (H&P 07/31) TREATMENT: IV VANCOMYCIN (ER 07/31) IV LEVAQUIN (ER 07/31) IV ZOSYN (08/02-PRESENT) SERIAL LABS (07/30-08/03) URINE CULTURES (07/31) [employer] (This form is maintained as a part of the permanent medical record) 2014 [email or web address]. All Rights Reserved [email or web address] Office: [phone] [facility]
[2019-08-03] MEDS: Furosemide 40 MG TAB PO SCH (20:53)
[2019-08-03] MEDS ORDERED: Sodium Chloride 0.9% 10 ML ONE (20:56)
--- NOTE | 2019-08-03 23:50 | CON ---
DATE OF CONSULTATION: 08/03/2019 REASON FOR CONSULTATION: Possible invasive UTI. HISTORY OF PRESENT ILLNESS: A 68-year-old, history of hypertension, COPD, CHF with pacemaker, prostate cancer, on androgen inhibitor and also obstructive uropathy requiring Capellan catheterization for the past year. Urologist is Dr. Contreras, and it is not clear if he is going to be a candidate for any intervention, or if he is going to require suprapubic catheter placement. He was in a long term and was transferred because of worsening dyspnea and cough. He did not have any documented fever. No chest pain. No abdominal pain or diarrhea. On arrival at [facility], he was saturating 82%, and he was given Zosyn and Lasix. Initial exam with BP 120/75, heart rate 80, respiratory rate 18, temperature max 102, and pulse ox 98% on room air. Chest, exam of the lungs showed poor air movements with inspiratory crackles, right and left side. Heart exam showed S1 and S2 with a paced rhythm. Abdomen, soft, nontender. No bladder distention. No organomegaly or ascites. Initial labs with a white cell count 7.3, hemoglobin 12.8, platelets 158 with creatinine 1.56. Chest x-ray with evidence of cardiomegaly and pulmonary vascular congestion, some patchy bibasilar infiltrates. The patient was given Lipitor, Casodex, Coreg, Plavix, Lovenox, Lasix b.i.d., Imdur, Zestril, Nitrostat, Ditropan, Zosyn. Currently, he is awake. He denies any headaches. No shortness of breath anymore. No chest pain. No abdominal pain. PAST MEDICAL HISTORY: Includes COPD, CHF, atrial fibrillation, cardiomyopathy, prostate cancer with obstructive uropathy, hydronephrosis, hypertension. SURGICAL HISTORY: Colon resection, pacemaker, skin graft after resection of skin cancer in the left hand. SOCIAL HISTORY: Former smoker. No alcoholic beverage use. ALLERGIES: NONE. CURRENT MEDICATIONS: 1. Ecotrin. 2. Lipitor. 3. Casodex. 4. Coreg. 5. Plavix. 6. Lovenox. 7. Lasix. 8. Imdur. 9. Zestril. 10. Protonix. 11. Zosyn. 12. Tramadol. PHYSICAL EXAMINATION: VITAL SIGNS: T-max 100.3, is now 97.6, BP 120/75, pulse 99, respirations 15, O2 saturation 98%. SKIN: Shows the areas of previous skin transplant and donor site in the left anterior thigh. There is maceration of the intertriginous area in the groins and there is the donor site for the skin graft to left hand, which seems to have taken well. No lymphadenopathy. Ocular movements conjugate. Numerous missing teeth, remainder ones in lot of decay. NECK: Supple. No jugular vein distention. LUNGS: Symmetric air entry. S1 and S2 regular rate without significant murmurs. ABDOMEN: Soft, not distended or tender. No ascites. No bladder distention. Capellan catheter in place with somewhat cloudy urine drainage. Diffuse stiffness. Pulses are 1+ in dorsalis pedis. Plantar responses are flexor. No clonus. NEUROLOGIC: He is awake, knows his name. He knew this was in [place], but could not remember the name of the hospital, but otherwise he followed commands. He does have some mild cognitive dysfunction. LABORATORY DATA: White cell count 7.3, hemoglobin 12, platelets 158. Chemistry was with GFR 45, which is better than the one in 2017, which was very elevated probably when the prostatic enlargement was diagnosed. Microbiology with urine culture with four different organisms, one of them P aeruginosa with resistance to all the antimicrobial agents except for amikacin. The echo report demonstrated EF 10% to 15%, diastolic dysfunction, systolic dysfunction obviously, pacemaker with AICD, moderate mitral regurgitation, moderately enlarged right atrium size, moderate tricuspid regurgitation. ASSESSMENT: 1. Chronic obstructive pulmonary disease. 2. Congestive heart failure with advanced cardiomyopathy, AICD in place. 3. Worsening dyspnea related to decompensated congestive heart failure. 4. Obstructive uropathy, requiring indwelling Capellan catheter. DISCUSSION: The urinary findings likely reflect the presence of the foreign body in the bladder, but I do not see a strong clinical or laboratory evidence to suggest an invasive urinary tract infection, i.e., there is no neutrophilia or left shift. The patient has had no fever, no symptoms to indicate an invasive urinary tract infection and one would expect an abnormal urinalysis and positive cultures anyway, so I would not recommend treating the findings in the urine culture/urinalysis at this point in time. He is at risk however of developing an invasive urinary tract infection and would require eventual decision as to if he would be a candidate for any procedure to relieve the obstruction, or if he would be a candidate for suprapubic catheter placement. Job ID: [id number]
[2019-08-04] MEDS: Piperacillin/Tazobactam 3.375 GM in Sodium Chloride 0.9% 100 ML IVPB SCH (04:54)
--- NOTE | 2019-08-04 06:24 | PDOC.CPN ---
- Subjective Date: 08/04/19 Time: 09:37 Interval history: No comaplints today. Pacer interrogated and appears to have aflutter - Objective Allergies/Adverse Reactions: Allergies Allergy/AdvReac Type Severity Reaction Status Date / Time No Known Allergies Allergy Verified 07/30/19 23:27 Visit Medications: Current Medications Aspirin (Ecotrin) 81 mg PO DAILY [facility] Last Admin: 08/03/19 09:29 Dose: 81 mg Atorvastatin Calcium (Lipitor) 40 mg PO DAILY [facility] Last Admin: 08/03/19 09:30 Dose: 40 mg Bicalutamide (Casodex) 50 mg PO DAILY [facility] Last Admin: 08/03/19 09:28 Dose: 50 mg Carvedilol (Coreg) 6.25 mg PO BID-[facility] Last Admin: 08/03/19 16:10 Dose: 6.25 mg Clopidogrel Bisulfate (Plavix) 75 mg PO DAILY [facility] Last Admin: 08/03/19 09:29 Dose: 75 mg Enoxaparin Sodium (Lovenox) 30 mg SC 0900 [facility] Last Admin: 08/03/19 09:30 Dose: 30 mg Furosemide (Lasix) 40 mg PO BID [facility] Last Admin: 08/03/19 20:53 Dose: 40 mg Piperacillin Sod/Tazobactam (Sod 3.375 gm/ Sodium Chloride) 100 mls @ 200 mls/ hr IVPB 0400,1000,1600,2200 [facility] Last Admin: 08/04/19 04:54 Dose: 100 mls Isosorbide Mononitrate (Imdur Er) 30 mg PO DAILY [facility] Last Admin: 08/03/19 09:29 Dose: 30 mg Lisinopril (Zestril) 2.5 mg PO DAILY [facility] Last Admin: 08/03/19 09:29 Dose: 2.5 mg Nitroglycerin (Nitrostat) 0.4 mg SL ASDIR PRN PRN Reason: Chest Pain Oxybutynin Chloride (Ditropan) 5 mg PO TID [facility] Last Admin: 08/03/19 20:53 Dose: 5 mg Pantoprazole Sodium (Protonix) 40 mg PO DAILY [facility] Last Admin: 08/03/19 09:30 Dose: 40 mg Sodium Chloride (Flush - Normal Saline) 10 ml IVF Q12HR [facility] Sodium Chloride (Flush - Normal Saline) 10 ml IVF PRN PRN PRN Reason: Saline Flush Last Admin: 08/04/19 04:54 Dose: 10 ml Tamsulosin HCl (Flomax) 0.4 mg PO DAILY [facility] Last Admin: 08/03/19 09:30 Dose: 0.4 mg Tramadol HCl (Ultram) 50 mg PO Q6HR PRN PRN Reason: Moderate Pain (4-6) Vital Signs & Weight: Vital Signs Temp Pulse Resp BP Pulse Ox 08/04/19 04:00 97.5 F L 81 18 114/82 96 08/04/19 01:46 96 08/04/19 00:00 20 08/03/19 20:00 97.4 F L 79 20 128/73 96 Admit Weight 217 lb 6.4 oz Weight 217 lb 11.2 oz - Physical Exam General: alert & oriented x3 Neck: supple neck, no masses Cardiac: regular rate, regular rhythm Lungs: normal exam Neuro: grossly intact Abdomen: unremarkable Skin: rash Musculoskeletal: no pain - Labs Result Diagrams: 07/31/19 05:10 08/04/19 05:39 Troponin/CKMB CK-MB (CK-2) 0.7 ng/mL (0-6.6) 07/30/19 20:12 Troponin I 0.037 ng/mL (< 0.028) H 07/30/19 23:11 - Assessment/Plan Assessment/Plan: Acute on chronic systolic HF CAD s/p stent UTI 08/04 REC See below EP consult for a flutter PM in place Pt has been in afib/flutter since june No ACT noted Check SW records On ACEI, BB, ASA, statin Could CV but would need amiodarone loading for best results given low EF
[2019-08-04 06:33] LABS: Anion Gap 12 mmol/L (10-20); BUN (Urea Nitrogen) 34 mg/dL (8.4-25.7); Calc. Creatinine Clearance 68 mL/min (70-130); Calcium 9.3 mg/dL (7.8-10.44); Carbon Dioxide 25 mmol/L (23-31); Chloride 106 mmol/L (98-107); Estimated GFR-MDRD 49; Glucose 110 mg/dL (80-115); Potassium 3.7 mmol/L (3.5-5.1); Sodium 139 mmol/L (136-145)
--- NOTE | 2019-08-04 06:38 | PDOC.FM ---
- Subjective Subjective: Pt denies CP, SOB, LE swelling Pt states he will see Dr. Roca outpatient for SP cath placement. no complaints this morning. Tele Monitoring: Bi-Ventricular paced. a-flutter 80-90's. good urinary output. Pt back on Po lasix home dose. - Objective MAR Reviewed: Yes Vital Signs & Weight: Vital Signs (12 hours) Temp Pulse Resp BP Pulse Ox 08/04/19 04:00 97.5 F L 81 18 114/82 96 08/04/19 01:46 96 08/04/19 00:00 20 08/03/19 20:00 97.4 F L 79 20 128/73 96 Weight Admit Weight 98.611 kg Weight 98.747 kg I&O: 08/02/19 08/03/19 08/04/19 06:59 06:59 06:59 Intake Total 0 1420 720 Output Total 1999 5854 1650 Balance -330 -1105 -930 Result Diagrams: 07/31/19 05:10 08/04/19 05:39 Phys Exam - Physical Examination Constitutional: NAD HEENT: PERRLA, moist MMs, sclera anicteric Neck: no nodes, no JVD, supple, full ROM Respiratory: no wheezing, no rales, no rhonchi, clear to auscultation bilateral Cardiovascular: RRR, no rub soft systolic murmur Gastrointestinal: soft, non-tender, no distention, positive bowel sounds Musculoskeletal: no edema, pulses present Neurological: non-focal, normal sensation, moves all 4 limbs Lymphatic: no nodes Skin: no rash, normal turgor, cap refill <2 seconds Dx/Plan (1) Dilated cardiomyopathy Code(s): I42.0 - DILATED CARDIOMYOPATHY Status: Acute (2) Acute exacerbation of CHF (congestive heart failure) Code(s): I50.9 - HEART FAILURE, UNSPECIFIED Status: Acute (3) Acute kidney injury superimposed on CKD Code(s): N17.9 - ACUTE KIDNEY FAILURE, UNSPECIFIED; N18.9 - CHRONIC KIDNEY DISEASE, UNSPECIFIED Status: Acute (4) Cardiorenal syndrome Code(s): I13.10 - HYP HRT & CHR KDNY DIS W/O HRT FAIL, W STG 1-4/UNSP CHR KDNY Status: Acute (5) A-fib Code(s): I48.91 - UNSPECIFIED ATRIAL FIBRILLATION Status: Acute (6) UTI (urinary tract infection) Status: Acute (7) CKD (chronic kidney disease) stage 3, GFR 30-59 ml/min Code(s): N18.3 - CHRONIC KIDNEY DISEASE, STAGE 3 (MODERATE) Status: Chronic (8) Chronic diastolic CHF (congestive heart failure) Code(s): I50.32 - CHRONIC DIASTOLIC (CONGESTIVE) HEART FAILURE Status: Chronic (9) Prostate cancer Code(s): C61 - MALIGNANT NEOPLASM OF PROSTATE Status: Chronic - Plan Plan: Patient is a 68M with PMHx of HTN, COPD, CHF, afib s/p pacemaker, cardiomyopathy , prostate cancer, stage 3 CKD who presents as a transfer from the [facility] ED for CHF exacerbation, CATHERINE,and UTI. 1. Acute on chronic diastolic CHF exacerbation, improved - Dyspnea on exertion of walking 15-20 feet, PND, much improved -patient's BNP 2895, CXR: cardiomegaly, Pacemaker -initially bibasilar crackles on exam, clinically improved 08/02 -patient's cough likely 2/2 volume overload, Procal 0.96--> 1.08--> 0.82 --> 0.41. Given Vanc, Zosyn and levoquin in ED. -Po lasix 40 mg BID -last echo in 2016, suggestive of diastolic heart failure with EF of 40-45% - Echo this admission: EF 10-15%, Grade 3/3 Diastolic Dysfunction. LV and LA severely increased size. Dilated RV with decreased RV systolic function. Mild- Mod aortic stenosis, SMITHA 1.39 cm sq. RV systolic pressure 36 mmHG. - Continue ASA, Clopidogrel, Imdur, Nitroglycerin, Carvedilol - Awaiting recs from [facility] - Dr. Santoyo recommends Life vest and f/u outpatient. 2. Dilated Cardiomyopathy - Echo this admission: EF 10-15%, Grade 3/3 Diastolic Dysfunction. LV and LA severely increased size. Dilated RV with decreased RV systolic function. Mild- Mod aortic stenosis, SMITHA 1.39 cm sq. RV systolic pressure 36 mmHG. - Added KERMIT-I,Lisinopril 2.5 mg to regimen. - Cards following pt. Appreciate recs. 3. CATHERINE on CKD stage 3, improving - Most likely caused by cardiorenal syndrome -creatinine 2.21, baseline 1.5-1.8, Cr 1.92 on 08/01., Cr on 08/01 1.53, on 08/03 1.56, --> 08/04 Cr 1.43 -GFR 30, was 46 on 05/06/19 -likely due to #1 -will continue to monitor for improvement post lasix. 4. UTI - 2/2 chronic indwelling astudillo cath. -received zosyn, vanc, and levaquin in ED -Previous urine cultures were resistant to streptomycin, erythromycin, and tetracycline - Pseudomonas, Resistant to everything except amikacin. - Dr. Shelton, ID consulted. Recommending no treatment of UTI at this time. D/C' s Zosyn. - Pt will followup outpatient with Dr. Contreras for SP cath placement. 5. Elevated troponins, most likely from increased cardiac wall/myocyte stress from volume overload. -troponins elevated 0.032>0.041>0.037, improved with lasix. Etiology likely secondary to CHF exacerbation and CKD stage 3 -EKG showed no acute changes -No subjective chest pain 6. Hx of COPD 7. Hx of A. Fib - Dr. Santoyo added eliquis BID 5 mg and amiodarone 400 mg daily 8. S/P Pacemaker Placement 9. Hx of Prostate CA - Bilateral hydronephrosis - Obstructive uropathy - Continue Casodex, tamsulosin and oxybutynin - Astudillo urinary cath placed - Dr. Contreras is pt's urologist. He will see patient in office after discharge to place a SP cath. Recommended to leave astudillo cath at this time and have ID see patient for resistant UTI. 10. Hx of HTN 11. Hx of Mobitz type 2 heart block - S/P Pacemaker placement DVT proph: lovenox Diet: HH Code: Full Dispo: Stable, inpatient for CHF exacerbation Addendum - Attending - Attending Attestation Date/Time: 08/04/19 1768 I personally evaluated the patient and discussed the management with Dr. Becerra. I agree with the History, Examination, Assessment and Plan documented above with any addition or exceptions noted below. The patient has an EP consult pending today. Urology has recommended against removing his astudillo due to long history of obstructive uropathy. No antibiotics at this time as pt has a normal wbc and is afebrile.
[2019-08-04] MEDS: Isosorbide Mononitrate (ER) 30 MG TAB PO SCH (08:54)
[2019-08-04] MEDS: Lisinopril 2.5 MG TAB PO SCH (08:54)
[2019-08-04] MEDS: Tamsulosin HCl 0.4 MG CAP PO SCH (08:54)
[2019-08-04] MEDS: Amiodarone 200 MG TAB PO SCH (08:54)
[2019-08-04] MEDS: Clopidogrel Bisulfate 75 MG TAB PO SCH (08:55)
[2019-08-04] MEDS: Aspirin 81 mg Enteric Coated Tablet PO SCH (08:55)
[2019-08-04] MEDS: Furosemide 40 MG TAB PO SCH ×2 (08:55→20:50)
[2019-08-04] MEDS: Oxybutynin 5 MG TAB PO SCH ×3 (08:55→20:50)
[2019-08-04] MEDS: Carvedilol 6.25 MG TAB PO SCH ×2 (08:55→16:57)
[2019-08-04] MEDS: Bicalutamide 50 MG TAB PO SCH (08:55)
[2019-08-04] MEDS ORDERED: Apixaban 5 MG TAB PO SCH (09:00)
[2019-08-04] MEDS: Atorvastatin Calcium 40 MG TAB PO SCH ×2 (10:57→20:50)
--- NOTE | 2019-08-04 19:11 | CON ---
DATE OF CONSULTATION: HISTORY OF PRESENT ILLNESS: I am seeing Mr. 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 His problems are; 1. Acute on chronic systolic congestive heart failure with nonischemic cardiomyopathy. a. Prior history of reduced left ventricular ejection fraction at 40% to 45% on prior echos. b. Followup 2D echo from 07/06/2019, reveals left ventricular ejection fraction of 10% to 15%, mild aortic stenosis is 1.39 squared centimeters, moderate tricuspid regurgitation. 2. Status post biventricular pacemaker implantation with a [employer] Quadra MOTORCOACH OPERATOR-P device on April 21, 2019. 3. Sustained atrial flutter, possibly typical isthmus dependent. 4. History of chronic suprapubic catheter with urinary tract infection, now resolved. 5. History of obstructive uropathy. 6. History of prostate cancer. 7. History of chronic obstructive pulmonary disease. 8. History of kidney disease with hydronephrosis. 9. Hypertension. ALLERGIES: NONE. MEDICATIONS: Medication before admission included; 1. Casodex. 2. Flomax. 3. Ecotrin. 4. Lasix. 5. Carvedilol. 6. Plavix. 7. Tylenol. 8. Tramadol. 9. Ditropan. 10. Pantoprazole. 11. Isosorbide. 12. Nitroglycerin. SUBJECTIVE: Mr. French is here with symptoms of acute on chronic systolic congestive heart failure exacerbation and fluid overload. He also had symptoms with chronic urinary infection. He has suprapubic catheter in place. He was treated adequately for heart failure exacerbation, and his saturation and symptoms have improved. Currently, he has no further issues with that. He can lay flat. No lower extremity swelling is noted. No fever, chills, or cough. He was evaluated by ID specialist, and no definite UTI is diagnosed at this time. He is overall improving the symptoms. REVIEW OF SYSTEMS: Rest of 12-point review of system otherwise unremarkable. PAST MEDICAL HISTORY: As above. He previously had issues with heart failure, hence a Bi-V pacemaker was placed, but the LVEF has further worsened, despite not 10% to 15%. He is also noted to be in atrial flutter, which was not present on the ICD insertion pacemaker interrogation before on June 26. He has history of GERD, prostate cancer, constipation, complete AV block, and chronic systolic congestive heart failure. SOCIAL HISTORY: The patient lives alone. Denies smoking, EtOH, or drug abuse. FAMILY HISTORY: Noncontributory. OBJECTIVE DATA: VITAL SIGNS: Blood pressure is 135/76, heart rate 80, respiratory rate 16, and temperature 98.6 degrees Fahrenheit. GENERAL: Alert and oriented man, in no apparent distress. NECK: Supple. Jugular veins not distended. CHEST: Coarse without crackles. HEART: Sounds are regular to rate and rhythm. No murmur or gallop. ABDOMEN: Benign bowel sounds. EXTREMITIES: Positive lower extremity, no edema, clubbing, or cyanosis. DATABASE: EKG is reviewed, initially revealing an atrial flutter with ventricular pacing. Subsequent EKGs are similar. A good ventricular rate control is noted. Interrogation of pacemaker reveal a [employer] Quadra RF MOTORCOACH OPERATOR-P pacemaker battery longevity 7.2 years. Lead parameters are adequate 1.8 mV in the atrium, 8.2 mV at RV impedance in normal range. LV threshold was 1 V at 0.5 milliseconds. Atrial flutter noted since June 28 chronic fluid overload, now improving. LABORATORY DATA: White cell count 7.3, hemoglobin 12.8, and platelet count is 158. Sodium 139, potassium 3.5, BUN is 34, and creatinine 1.43. Troponin levels are 0.037, 0.041. ASSESSMENT AND PLAN: Mr. French is a pleasant 68-year-old man with history of systolic congestive heart failure with prior documentation of reduced left ventricular ejection fraction on echocardiogram in the 40% to 45% range. He had a complete atrioventricular block, and biventricular pacemaker was placed despite his left ventricular ejection fraction now even worse at 10% to 15% range. He was started on amiodarone and Eliquis during his stay here. He continues to be stable so far. We discussed the issues about future ventricular arrhythmias and chronic systolic congestive heart failure with despite adequate medical therapy and progressive worsening left ventricular systolic function. I think it would be reasonable to consider biventricular implantable cardioverter-defibrillator upgrade. He also has atrial flutter, which potential typical isthmus dependent, but also could be pace-terminable likely atrial ATP device would be reasonable. He likely will need anticoagulation and possible future ablation if these efforts fail. Continued efforts for heart failure optimization are welcome as per Dr. Santoyo. We discussed the benefit of a biventricular ICD upgrade with the patient. We also discussed potential need for removal of his right old RV lead, which hence recently placed likely easy to extract. We will hold EliMirificeis for procedure, resume afterwards. Thank you again for allowing me to participate in the care of this patient. Job ID: [id number]
--- NOTE | 2019-08-05 06:20 | PDOC.FM ---
- Subjective Subjective: Pt c/o mild anxiety about ICD implantation procedure going to take place today. He denies CP, SOB, or swelling. Tele monitoring overnight: Bi-V paced, A-flutter, 80's. Interrogation of PM: showed A. Flutter. - Objective MAR Reviewed: Yes Vital Signs & Weight: Vital Signs (12 hours) Temp Pulse Resp BP BP Pulse Ox 08/05/19 04:00 97.6 F 84 20 128/79 98 08/05/19 02:03 96 08/05/19 00:00 20 08/04/19 20:00 97.3 F L 20 112/68 96 Weight Admit Weight 98.611 kg Weight 98.293 kg I&O: 08/03/19 08/04/19 08/05/19 06:59 06:59 06:59 Intake Total 1420 1200 980 Output Total 2525 2250 650 Balance -1105 -1050 330 Result Diagrams: 08/05/19 06:42 08/05/19 06:42 Phys Exam - Physical Examination Constitutional: NAD HEENT: PERRLA, moist MMs, sclera anicteric Neck: no nodes, no JVD, supple, full ROM Respiratory: no wheezing, no rales, no rhonchi, clear to auscultation bilateral Cardiovascular: RRR, no rub soft sytolic murmur Gastrointestinal: soft, non-tender, no distention, positive bowel sounds Musculoskeletal: pulses present Neurological: non-focal, normal sensation, moves all 4 limbs Skin: no rash, normal turgor, cap refill <2 seconds Deviation from normal: scar on LUE and LLE from removal of malignant lesions. Dx/Plan (1) Dilated cardiomyopathy Code(s): I42.0 - DILATED CARDIOMYOPATHY Status: Acute (2) Acute exacerbation of CHF (congestive heart failure) Code(s): I50.9 - HEART FAILURE, UNSPECIFIED Status: Acute (3) Acute kidney injury superimposed on CKD Code(s): N17.9 - ACUTE KIDNEY FAILURE, UNSPECIFIED; N18.9 - CHRONIC KIDNEY DISEASE, UNSPECIFIED Status: Acute (4) Cardiorenal syndrome Code(s): I13.10 - HYP HRT & CHR KDNY DIS W/O HRT FAIL, W STG 1-4/UNSP CHR KDNY Status: Acute (5) A-fib Code(s): I48.91 - UNSPECIFIED ATRIAL FIBRILLATION Status: Acute (6) UTI (urinary tract infection) Status: Acute (7) CKD (chronic kidney disease) stage 3, GFR 30-59 ml/min Code(s): N18.3 - CHRONIC KIDNEY DISEASE, STAGE 3 (MODERATE) Status: Chronic (8) Chronic diastolic CHF (congestive heart failure) Code(s): I50.32 - CHRONIC DIASTOLIC (CONGESTIVE) HEART FAILURE Status: Chronic (9) Prostate cancer Code(s): C61 - MALIGNANT NEOPLASM OF PROSTATE Status: Chronic - Plan Plan: Patient is a 68M with PMHx of HTN, COPD, CHF, afib s/p pacemaker, cardiomyopathy , prostate cancer, stage 3 CKD who presents as a transfer from the [place] ED for CHF exacerbation, CATHERINE,and UTI. 1. Acute on chronic diastolic CHF exacerbation, improved - Dyspnea on exertion of walking 15-20 feet, PND, much improved -patient's BNP 2895, CXR: cardiomegaly, Pacemaker -initially bibasilar crackles on exam, clinically improved 08/02 -patient's cough likely 2/2 volume overload, Procal 0.96--> 1.08--> 0.82 --> 0.41. Given Vanc, Zosyn and levoquin in ED. -Po lasix 40 mg BID -last echo in 2016, suggestive of diastolic heart failure with EF of 40-45% - Echo this admission: EF 10-15%, Grade 3/3 Diastolic Dysfunction. LV and LA severely increased size. Dilated RV with decreased RV systolic function. Mild- Mod aortic stenosis, SMITHA 1.39 cm sq. RV systolic pressure 36 mmHG. - Continue ASA, Clopidogrel, Imdur, Nitroglycerin, Carvedilol - Dr. Quezada placing ICD 10/2. Pt consented and NPO for procedure. 2. Dilated Cardiomyopathy - Echo this admission: EF 10-15%, Grade 3/3 Diastolic Dysfunction. LV and LA severely increased size. Dilated RV with decreased RV systolic function. Mild- Mod aortic stenosis, SMITHA 1.39 cm sq. RV systolic pressure 36 mmHG. - Added KERMIT-I,Lisinopril 2.5 mg to regimen. - Cards following pt. Appreciate recs. 3. CATHERINE on CKD stage 3, improving - Most likely caused by cardiorenal syndrome -creatinine 2.21, baseline 1.5-1.8, Cr 1.92 on 08/01., Cr on 08/01 1.53, on 08/03 1.56, --> 08/04 Cr 1.43 -GFR 30, was 46 on 05/06/19 -likely due to #1 -will continue to monitor for improvement post lasix. 4. UTI - 2/2 chronic indwelling astudillo cath. -received zosyn, vanc, and levaquin in ED -Previous urine cultures were resistant to streptomycin, erythromycin, and tetracycline - Pseudomonas, Resistant to everything except amikacin. - Dr. Shelton, ID consulted. Recommending no treatment of UTI at this time. D/C' s Zosyn. - Pt will followup outpatient with Dr. Contreras in office for SP cath placement on 08/10 @ 1000. 5. Elevated troponins, most likely from increased cardiac wall/myocyte stress from volume overload. -troponins elevated 0.032>0.041>0.037, improved with lasix. Etiology likely secondary to CHF exacerbation and CKD stage 3 -EKG showed no acute changes -No subjective chest pain 6. Hx of COPD 7. Hx of A. Fib - Dr. Santoyo added eliquis BID 5 mg and amiodarone 400 mg daily - Dr. Quezada, plans to take pt for procedure 08/05. held eliquis. plan for ICD placement on 08/05. 8. S/P Pacemaker Placement - Interrogation showed A. flutter 9. Hx of Prostate CA - Bilateral hydronephrosis - Obstructive uropathy - Continue Casodex, tamsulosin and oxybutynin - Astudillo urinary cath placed - Dr. Contreras is pt's urologist. He will see patient in office after discharge to place a SP cath. Recommended to leave astudillo cath at this time and have ID see patient for resistant UTI. Pt has appointment at 1000 on 08/10 for SP cath placement. 10. Hx of HTN - Lisinopril - Carvedilol 11. Hx of Mobitz type 2 heart block - S/P Pacemaker placement DVT proph: lovenox Diet: HH Code: Full Dispo: Stable, inpatient for CHF exacerbation Addendum - Attending - Attending Attestation Date/Time: 08/05/192043 I personally evaluated the patient and discussed the management with Dr. Becerra. I agree with the History, Examination, Assessment and Plan documented above with any addition or exceptions noted below. The patient was sitting up on the side of the bed this morning. He will have aicd placed. Can likely go back to NH in the next 24-48 hours.
[2019-08-05 07:07] LABS: #Eosinphils 0.9 thou/uL (0.0-0.7); #Lymphocytes 1.4 thou/uL (1.20-3.40); #Monocytes 0.7 thou/uL (0.11-0.59); #Neutrophils 4.7 thou/uL (1.40-6.50); %Eosinophils 11.7 % (0.0-10.0); %Lymphocytes 18.3 % (21.0-51.0); %Monocytes 8.8 % (0.0-10.0); %Neutrophils 61.2 % (42.0-75.0); Mean Corpuscular HGB CONC 31.6 g/dL (32.0-36.0); Mean Corpuscular Hemoglobin 26.1 pg (27.0-31.0); Mean Corpuscular Volume 82.6 fL (78.0-98.0); Mean Platelet Volume 8.7 fL (7.4-10.4); Platelet Count 213 thou/uL (130-400); RBC Distribution Width 15.7 % (11.5-14.5); Red Blood Cell (RBC) Count 4.96 mill/uL (4.70-6.10); White Blood Cell (WBC) Count 7.6 thou/uL (4.8-10.8)
[2019-08-05 07:22] LABS: Anion Gap 13 mmol/L (10-20); BUN (Urea Nitrogen) 35 mg/dL (8.4-25.7); Calc. Creatinine Clearance 61 mL/min (70-130); Calcium 9.7 mg/dL (7.8-10.44); Carbon Dioxide 26 mmol/L (23-31); Chloride 105 mmol/L (98-107); Estimated GFR-MDRD 43; Glucose 108 mg/dL (80-115); Potassium 3.9 mmol/L (3.5-5.1); Sodium 140 mmol/L (136-145)
[2019-08-05] MEDS: Isosorbide Mononitrate (ER) 30 MG TAB PO SCH (08:50)
[2019-08-05] MEDS: Tamsulosin HCl 0.4 MG CAP PO SCH (08:50)
[2019-08-05] MEDS: Aspirin 81 mg Enteric Coated Tablet PO SCH (08:50)
[2019-08-05] MEDS: Amiodarone 200 MG TAB PO SCH (08:50)
[2019-08-05] MEDS: Oxybutynin 5 MG TAB PO SCH ×3 (08:51→20:18)
[2019-08-05] MEDS: Furosemide 40 MG TAB PO SCH ×2 (08:51→20:17)
[2019-08-05] MEDS: Lisinopril 2.5 MG TAB PO SCH (08:51)
[2019-08-05] MEDS: Clopidogrel Bisulfate 75 MG TAB PO SCH (08:52)
[2019-08-05] MEDS: Carvedilol 6.25 MG TAB PO SCH ×2 (08:52→18:19)
[2019-08-05] MEDS: Bicalutamide 50 MG TAB PO SCH (08:52)
[2019-08-05 12:44] VITALS: BMI 26.4
--- NOTE | 2019-08-05 14:20 | PDOC.CPN ---
- Subjective Date: 08/05/19 Time: 09:00 - Review of Systems General: denies: fever/chills, weight/appetite/sleep changes, night sweats, fatigue Respiratory: denies: cough, congestion, shortness of breath, exercise intolerance Cardiovascular: denies: chest pain, palpitation, edema, paroxysmal nocturnal dyspnea, orthopnea Gastrointestinal: denies: nausea, vomiting, diarrhea, constipation, abd pain, GI bleeding Musculoskeletal: denies: pain, tenderness, stiffness, swelling, arthritis/ arthralgias - Objective Allergies/Adverse Reactions: Allergies Allergy/AdvReac Type Severity Reaction Status Date / Time No Known Allergies Allergy Verified 07/30/19 23:27 Visit Medications: Current Medications Amiodarone HCl (Cordarone) 400 mg PO DAILY [facility] Last Admin: 08/05/19 08:50 Dose: 400 mg Apixaban (Eliquis) 5 mg PO BID [facility] Last Admin: 08/04/19 08:55 Dose: 5 mg Aspirin (Ecotrin) 81 mg PO DAILY [facility] Last Admin: 08/05/19 08:50 Dose: 81 mg Atorvastatin Calcium (Lipitor) 40 mg PO HS [facility] Last Admin: 08/04/19 20:50 Dose: 40 mg Bicalutamide (Casodex) 50 mg PO DAILY [facility] Last Admin: 08/05/19 08:52 Dose: 50 mg Carvedilol (Coreg) 6.25 mg PO BID-[facility] Last Admin: 08/05/19 08:52 Dose: 6.25 mg Clopidogrel Bisulfate (Plavix) 75 mg PO DAILY [facility] Last Admin: 08/05/19 08:52 Dose: Not Given Furosemide (Lasix) 40 mg PO BID [facility] Last Admin: 08/05/19 08:51 Dose: 40 mg Isosorbide Mononitrate (Imdur Er) 30 mg PO DAILY [facility] Last Admin: 08/05/19 08:50 Dose: 30 mg Lisinopril (Zestril) 2.5 mg PO DAILY [facility] Last Admin: 08/05/19 08:51 Dose: 2.5 mg Nitroglycerin (Nitrostat) 0.4 mg SL ASDIR PRN PRN Reason: Chest Pain Oxybutynin Chloride (Ditropan) 5 mg PO TID [facility] Last Admin: 08/05/19 08:51 Dose: 5 mg Pantoprazole Sodium (Protonix) 40 mg PO DAILY [facility] Last Admin: 08/05/19 08:51 Dose: 40 mg Sodium Chloride (Flush - Normal Saline) 10 ml IVF Q12HR [facility] Last Admin: 08/05/19 08:52 Dose: 10 ml Sodium Chloride (Flush - Normal Saline) 10 ml IVF PRN PRN PRN Reason: Saline Flush Last Admin: 08/04/19 04:54 Dose: 10 ml Tamsulosin HCl (Flomax) 0.4 mg PO DAILY [facility] Last Admin: 08/05/19 08:50 Dose: 0.4 mg Tramadol HCl (Ultram) 50 mg PO Q6HR PRN PRN Reason: Moderate Pain (4-6) Vital Signs & Weight: Vital Signs Temp Pulse Resp BP BP BP Pulse Ox 08/05/19 11:54 98.0 F 80 18 109/69 96 08/05/19 08:52 133/79 08/05/19 08:51 81 133/89 08/05/19 07:30 97.6 F 81 18 133/89 97 08/05/19 04:00 97.6 F 84 20 128/79 98 Admit Weight 217 lb 6.4 oz Weight 216 lb 11.2 oz - Physical Exam General: alert & oriented x3, appears well, no apparent distress HEENT: mucus membranes moist, normocephaly Neck: supple neck, midline trachea, no JVD/HJR, no masses, no bruit, no lymphadenopathy, no thromegaly Cardiac: regular rate and rhythm Lungs: bibasilar rales Neuro: grossly intact - Labs Result Diagrams: 08/05/19 06:42 08/05/19 06:42 Troponin/CKMB CK-MB (CK-2) 0.7 ng/mL (0-6.6) 07/30/19 20:12 Troponin I 0.037 ng/mL (< 0.028) H 07/30/19 23:11 - Telemetry Supraventricular conduction: atrial flutter - Assessment/Plan Assessment/Plan: 1. Atrial flutter -rate controlled, not a likely cause of his declining EF -Started on Amiodarone and Eliquis this hospital stay -possibly CTI dependent 2. A/C HFrEF -10-15%, recently worsened 3. BiV-pacemaker -recently placed Upgrade to BiV ICD today with medtronic device for future ATP therapy. Continue eliquis. Will discuss future need for ablation vs medical management. For now, with the recently started OAC, we will refrain from ablation until adequately anticoagulated x 1 month. This will also hopefully allow him time to optimize his heart failure symptoms.
[2019-08-05] MEDS ORDERED: Lidocaine 1% (PF) 30 ML VIAL ONE (15:47)
[2019-08-05] MEDS ORDERED: Fentanyl 100 MCG/2 ML VIAL ONE ×2 (16:36→16:41)
[2019-08-05] MEDS ORDERED: Ketamine 50 MG/ML (10ML VIAL) ONE (16:37)
[2019-08-05] MEDS ORDERED: Midazolam HCl 2 mg/2 ml Vial ONE (16:41)
[2019-08-05] MEDS ORDERED: HYDROcodone/Acetaminophen 5/325 mg Tablet PO PRN ×2 (18:15)
[2019-08-05] MEDS: Atorvastatin Calcium 40 MG TAB PO SCH (20:17)
[2019-08-05] MEDS ORDERED: Iopamidol 370 76% 50 ML VIAL FS ONE (20:24)
--- NOTE | 2019-08-05 22:07 | RAD ---
RADIOGRAPH CHEST 1 VIEW: DATE: 08/05/2019 TIME: 9:09 PM HISTORY: 68-year-old male status post AICD replacement COMPARISON: 08/01/2019 FINDINGS: The current study patient position is lordotic, with magnification of cardiac shadow. The pulmonary i nterstitial edema demonstrated previously has apparently resolved. The right lateral costophrenic angle is sharp. There is a greater degree of effacement of the left lateral costophrenic angle, now w ith apparently new opacity at the left lung base, laterally. No pneumothorax. The generator for the left subclavian AICD has changed. IMPRESSION: 1. Interval exchange of the generator for the automatic implantable cardioverter-defibrillator. 2. Focal increased attenuation at the left lateral lung base, nonspecific.
[2019-08-05] MEDS: Cephalexin 250 MG CAP PO SCH (23:36)
[2019-08-06] MEDS: Cephalexin 250 MG CAP PO SCH ×2 (05:36→12:44)
[2019-08-06 05:53] LABS: Anion Gap 16 mmol/L (10-20); BUN (Urea Nitrogen) 34 mg/dL (8.4-25.7); Calc. Creatinine Clearance 62 mL/min (70-130); Calcium 9.7 mg/dL (7.8-10.44); Carbon Dioxide 21 mmol/L (23-31); Chloride 105 mmol/L (98-107); Estimated GFR-MDRD 45; Glucose 124 mg/dL (80-115); Potassium 3.8 mmol/L (3.5-5.1); Sodium 138 mmol/L (136-145)
--- NOTE | 2019-08-06 06:34 | PDOC.FM ---
- Subjective Subjective: Pt is doing very well this morning. Denies any complaints, including CP or SOB. Pt had an ICD placed Yesterday. Cardiology cleared for discharge and recommends follow up out patient. - Objective MAR Reviewed: Yes Vital Signs & Weight: Vital Signs (12 hours) Temp Pulse Resp BP Pulse Ox 08/06/19 04:00 98.4 F 63 16 110/67 96 08/05/19 23:52 97.6 F 59 L 16 105/56 L 95 08/05/19 20:00 97.5 F L 66 20 142/90 H 97 Weight Admit Weight 98.611 kg Weight 97.069 kg I&O: 08/04/19 08/05/19 08/06/19 06:59 06:59 06:59 Intake Total 1200 980 680 Output Total 2250 650 1150 Balance -1050 330 -470 Result Diagrams: 08/05/19 06:42 08/06/19 05:07 Phys Exam - Physical Examination Constitutional: NAD HEENT: PERRLA, moist MMs, sclera anicteric Neck: no nodes, no JVD, supple, full ROM Respiratory: no wheezing, no rales, no rhonchi, clear to auscultation bilateral Cardiovascular: RRR, no rub soft systolic murmur Gastrointestinal: soft, non-tender, no distention, positive bowel sounds Musculoskeletal: no edema, pulses present Neurological: non-focal, normal sensation, moves all 4 limbs Skin: no rash, normal turgor, cap refill <2 seconds Deviation from normal: scars on L upper and loer extremities from melanoma excisions. Dx/Plan (1) Dilated cardiomyopathy Code(s): I42.0 - DILATED CARDIOMYOPATHY Status: Acute (2) Acute exacerbation of CHF (congestive heart failure) Code(s): I50.9 - HEART FAILURE, UNSPECIFIED Status: Acute (3) Acute kidney injury superimposed on CKD Code(s): N17.9 - ACUTE KIDNEY FAILURE, UNSPECIFIED; N18.9 - CHRONIC KIDNEY DISEASE, UNSPECIFIED Status: Acute (4) Cardiorenal syndrome Code(s): I13.10 - HYP HRT & CHR KDNY DIS W/O HRT FAIL, W STG 1-4/UNSP CHR KDNY Status: Acute (5) A-fib Code(s): I48.91 - UNSPECIFIED ATRIAL FIBRILLATION Status: Acute (6) UTI (urinary tract infection) Status: Acute (7) CKD (chronic kidney disease) stage 3, GFR 30-59 ml/min Code(s): N18.3 - CHRONIC KIDNEY DISEASE, STAGE 3 (MODERATE) Status: Chronic (8) Chronic diastolic CHF (congestive heart failure) Code(s): I50.32 - CHRONIC DIASTOLIC (CONGESTIVE) HEART FAILURE Status: Chronic (9) Prostate cancer Code(s): C61 - MALIGNANT NEOPLASM OF PROSTATE Status: Chronic - Plan Plan: Patient is a 68M with PMHx of HTN, COPD, CHF, afib s/p pacemaker, cardiomyopathy , prostate cancer, stage 3 CKD who presents as a transfer from the [place] ED for CHF exacerbation, CATHERINE,and UTI. AICD placed on 08/05. 1. Acute on chronic diastolic CHF exacerbation, improved - Dyspnea on exertion of walking 15-20 feet, PND, much improved -patient's BNP 2895, CXR: cardiomegaly, Pacemaker -initially bibasilar crackles on exam, clinically improved 08/02 -patient's cough likely 2/2 volume overload, Procal 0.96--> 1.08--> 0.82 --> 0.41. Given Vanc, Zosyn and levoquin in ED. -Po lasix 40 mg BID -last echo in 2016, suggestive of diastolic heart failure with EF of 40-45% - Echo this admission: EF 10-15%, Grade 3/3 Diastolic Dysfunction. LV and LA severely increased size. Dilated RV with decreased RV systolic function. Mild- Mod aortic stenosis, SMITHA 1.39 cm sq. RV systolic pressure 36 mmHG. - Continue ASA, Clopidogrel, Imdur, Nitroglycerin, Carvedilol - Dr. Quezada placed ICD 08/05. Pt tolerated procedure well. - Cleared for discharge from cardiology perspective. f/u out patient with [facility]. 2. Dilated Cardiomyopathy - Echo this admission: EF 10-15%, Grade 3/3 Diastolic Dysfunction. LV and LA severely increased size. Dilated RV with decreased RV systolic function. Mild- Mod aortic stenosis, SMITHA 1.39 cm sq. RV systolic pressure 36 mmHG. - Added KERMIT-I,Lisinopril 2.5 mg to regimen. 3. CATHERINE on CKD stage 3, improving - Most likely caused by cardiorenal syndrome -creatinine 2.21, baseline 1.5-1.8, Cr 1.92 on 08/01., Cr on 08/01 1.53, on 08/03 1.56, --> 08/04 Cr 1.43 -GFR 30, was 46 on 05/06/19 -likely due to #1 4. UTI - 2/2 chronic indwelling astudillo cath. -received zosyn, vanc, and levaquin in ED -Previous urine cultures were resistant to streptomycin, erythromycin, and tetracycline - Pseudomonas, Resistant to everything except amikacin. - Dr. Shelton, ID consulted. Recommending no treatment of UTI at this time. D/C' s Zosyn. - Pt will followup outpatient with Dr. Contreras in office for SP cath placement on 08/10 @ 1000. 5. Elevated troponins, most likely from increased cardiac wall/myocyte stress from volume overload. -troponins elevated 0.032>0.041>0.037, improved with lasix. Etiology likely secondary to CHF exacerbation and CKD stage 3 -EKG showed no acute changes -No subjective chest pain 6. Hx of COPD 7. Hx of A. Fib - Dr. Santoyo added eliquis BID 5 mg and amiodarone 400 mg daily - Dr. Quezada, placed AICD on 08/05, to replace PM. 8. S/P Pacemaker Placement - Interrogation showed A. flutter 9. Hx of Prostate CA - Bilateral hydronephrosis - Obstructive uropathy - Continue Casodex, tamsulosin and oxybutynin - Astudillo urinary cath placed - Dr. Contreras is pt's urologist. He will see patient in office after discharge to place a SP cath. Recommended to leave astudillo cath at this time and have ID see patient for resistant UTI. Pt has appointment at 1000 on 08/10 for SP cath placement. 10. Hx of HTN - Lisinopril - Carvedilol 11. Hx of Mobitz type 2 heart block - S/P Pacemaker placement, now AICD 08/05. DVT proph: lovenox Diet: HH Code: Full Dispo: Stable, inpatient for CHF exacerbation much improved, AICD placement 08/05. Cleared for discharge from cardiology. Back to care home in [place]. Addendum - Attending - Attending Attestation Date/Time: 08/06/19 [id number] I personally evaluated the patient and discussed the management with Dr. Becerra. I agree with the History, Examination, Assessment and Plan documented above with any addition or exceptions noted below. The patient is doing well following aicd placement. He is cleared for d/c back to the care home.
--- NOTE | 2019-08-06 07:09 | PDOC.CPN ---
- Subjective Date: 08/06/19 Time: 08:56 Interval history: Doing well. S/p ICD yesterday. No issues - Objective Allergies/Adverse Reactions: Allergies Allergy/AdvReac Type Severity Reaction Status Date / Time No Known Allergies Allergy Verified 07/30/19 23:27 Visit Medications: Current Medications Hydrocodone Bitart/Acetaminophen ([place] 5/325) 1 tab PO Q4H PRN PRN Reason: Mild Pain Hydrocodone Bitart/Acetaminophen ([place] 5/325) 2 tab PO Q4H PRN PRN Reason: For Moderate Pain Apixaban (Eliquis) 5 mg PO BID [facility] Aspirin (Ecotrin) 81 mg PO DAILY [facility] Last Admin: 08/05/19 08:50 Dose: 81 mg Atorvastatin Calcium (Lipitor) 40 mg PO HS [facility] Last Admin: 08/05/19 20:17 Dose: 40 mg Bicalutamide (Casodex) 50 mg PO DAILY [facility] Last Admin: 08/05/19 08:52 Dose: 50 mg Carvedilol (Coreg) 6.25 mg PO BID-[facility] Last Admin: 08/05/19 18:19 Dose: Not Given Cephalexin (Keflex) 500 mg PO Q6HR [facility] Stop: 08/12/19 23:59 Last Admin: 08/06/19 05:36 Dose: 500 mg Clopidogrel Bisulfate (Plavix) 75 mg PO DAILY [facility] Last Admin: 08/05/19 08:52 Dose: Not Given Furosemide (Lasix) 40 mg PO BID [facility] Last Admin: 08/05/19 20:17 Dose: 40 mg Isosorbide Mononitrate (Imdur Er) 30 mg PO DAILY [facility] Last Admin: 08/05/19 08:50 Dose: 30 mg Lisinopril (Zestril) 2.5 mg PO DAILY [facility] Last Admin: 08/05/19 08:51 Dose: 2.5 mg Nitroglycerin (Nitrostat) 0.4 mg SL ASDIR PRN PRN Reason: Chest Pain Oxybutynin Chloride (Ditropan) 5 mg PO TID [facility] Last Admin: 08/05/19 20:18 Dose: 5 mg Pantoprazole Sodium (Protonix) 40 mg PO DAILY [facility] Last Admin: 08/05/19 08:51 Dose: 40 mg Sodium Chloride (Flush - Normal Saline) 10 ml IVF Q12HR [facility] Last Admin: 08/05/19 20:18 Dose: Not Given Sodium Chloride (Flush - Normal Saline) 10 ml IVF PRN PRN PRN Reason: Saline Flush Tamsulosin HCl (Flomax) 0.4 mg PO DAILY [facility] Last Admin: 08/05/19 08:50 Dose: 0.4 mg Tramadol HCl (Ultram) 50 mg PO Q6HR PRN PRN Reason: Moderate Pain (4-6) Vital Signs & Weight: Vital Signs Temp Pulse Resp BP Pulse Ox 08/06/19 04:00 98.4 F 63 16 110/67 96 08/05/19 23:52 97.6 F 59 L 16 105/56 L 95 08/05/19 20:00 97.5 F L 66 20 142/90 H 97 Admit Weight 217 lb 6.4 oz Weight 214 lb - Physical Exam General: alert & oriented x3 HEENT: normocephaly Neck: supple neck, no masses Cardiac: no murmur, regular rate Lungs: normal exam Neuro: grossly intact Abdomen: soft Musculoskeletal: no pain - Labs Result Diagrams: 08/05/19 06:42 08/06/19 05:07 Troponin/CKMB CK-MB (CK-2) 0.7 ng/mL (0-6.6) 07/30/19 20:12 Troponin I 0.037 ng/mL (< 0.028) H 07/30/19 23:11 - Assessment/Plan Assessment/Plan: Acute on chronic systolic HF CAD s/p stent UTI 08/06 REC s/p ICD Cotniune aggressive CHF meds BB, statin and ASA OK for DC and fu with cardiology at 08/04 REC See below EP consult for a flutter PM in place Pt has been in afib/flutter since june No ACT noted Check records On ACEI, BB, ASA, statin Could CV but would need amiodarone loading for best results given low EF
--- NOTE | 2019-08-06 07:57 | RAD ---
EXAM: Single view of the chest HISTORY: Status post pacemaker placement COMPARISON: 08/05/2019 FINDINGS: Single view of the chest shows an enlarged cardiomediastinal silhouette. The pacemaker is unchanged in position. No pneumothorax is seen. There is no evidence of consolidation, mass, or pleural effusion. The bones are unremarkable. IMPRESSION: Cardiomegaly
[2019-08-06] MEDS: Lisinopril 2.5 MG TAB PO SCH (09:41)
[2019-08-06] MEDS: Clopidogrel Bisulfate 75 MG TAB PO SCH (09:42)
[2019-08-06] MEDS: Tamsulosin HCl 0.4 MG CAP PO SCH (09:42)
[2019-08-06] MEDS: Furosemide 40 MG TAB PO SCH (09:42)
[2019-08-06] MEDS: Aspirin 81 mg Enteric Coated Tablet PO SCH (09:42)
[2019-08-06] MEDS: Carvedilol 6.25 MG TAB PO SCH (09:43)
[2019-08-06] MEDS: Oxybutynin 5 MG TAB PO SCH ×2 (09:43→15:26)
[2019-08-06] MEDS: Isosorbide Mononitrate (ER) 30 MG TAB PO SCH (09:43)
[2019-08-06] MEDS: Bicalutamide 50 MG TAB PO SCH (09:45)
--- NOTE | 2019-08-06 17:06 | PDOC.CPN ---
- Subjective Date: 08/06/19 (EP Progress note 08/06/19) Time: 08:00 Interval history: feels well today after upgrade to Bi V ICD on 08/05. Slight pain at incision site otherwise without cardiac concern/complaint. - Review of Systems General: denies: fever/chills, weight/appetite/sleep changes, night sweats, fatigue Respiratory: denies: cough, congestion, shortness of breath, exercise intolerance Cardiovascular: denies: chest pain, palpitation, edema, paroxysmal nocturnal dyspnea, orthopnea Gastrointestinal: denies: nausea, vomiting, diarrhea, constipation, abd pain, GI bleeding Musculoskeletal: denies: pain, tenderness, stiffness, swelling, arthritis/ arthralgias - Objective Allergies/Adverse Reactions: Allergies Allergy/AdvReac Type Severity Reaction Status Date / Time No Known Allergies Allergy Verified 07/30/19 23:27 Visit Medications: Current Medications Hydrocodone Bitart/Acetaminophen (Virden 5/325) 1 tab PO Q4H PRN PRN Reason: Mild Pain Hydrocodone Bitart/Acetaminophen (Virden 5/325) 2 tab PO Q4H PRN PRN Reason: For Moderate Pain Apixaban (Eliquis) 5 mg PO BID [facility] Aspirin (Ecotrin) 81 mg PO DAILY [facility] Last Admin: 08/06/19 09:42 Dose: 81 mg Atorvastatin Calcium (Lipitor) 40 mg PO HS [facility] Last Admin: 08/05/19 20:17 Dose: 40 mg Bicalutamide (Casodex) 50 mg PO DAILY [facility] Last Admin: 08/06/19 09:45 Dose: 50 mg Carvedilol (Coreg) 6.25 mg PO BID[facility] Last Admin: 08/06/19 09:43 Dose: 6.25 mg Cephalexin (Keflex) 500 mg PO Q6HR [facility] Stop: 08/12/19 23:59 Last Admin: 08/06/19 12:44 Dose: 500 mg Clopidogrel Bisulfate (Plavix) 75 mg PO DAILY [facility] Last Admin: 08/06/19 09:42 Dose: 75 mg Furosemide (Lasix) 40 mg PO BID [facility] Last Admin: 08/06/19 09:42 Dose: 40 mg Isosorbide Mononitrate (Imdur Er) 30 mg PO DAILY [facility] Last Admin: 08/06/19 09:43 Dose: 30 mg Lisinopril (Zestril) 2.5 mg PO DAILY [facility] Last Admin: 08/06/19 09:41 Dose: 2.5 mg Nitroglycerin (Nitrostat) 0.4 mg SL ASDIR PRN PRN Reason: Chest Pain Oxybutynin Chloride (Ditropan) 5 mg PO TID [facility] Last Admin: 08/06/19 15:26 Dose: 5 mg Pantoprazole Sodium (Protonix) 40 mg PO DAILY [facility] Last Admin: 08/06/19 09:42 Dose: 40 mg Sodium Chloride (Flush - Normal Saline) 10 ml IVF Q12HR [facility] Last Admin: 08/06/19 09:47 Dose: 10 ml Sodium Chloride (Flush - Normal Saline) 10 ml IVF PRN PRN PRN Reason: Saline Flush Tamsulosin HCl (Flomax) 0.4 mg PO DAILY [facility] Last Admin: 08/06/19 09:42 Dose: 0.4 mg Tramadol HCl (Ultram) 50 mg PO Q6HR PRN PRN Reason: Moderate Pain (4-6) Vital Signs & Weight: Vital Signs Temp Pulse Resp BP BP BP Pulse Ox 08/06/19 11:10 97.8 F 60 18 115/76 98 08/06/19 09:43 129/81 08/06/19 09:41 63 08/06/19 07:58 97.3 F L 63 20 129/81 98 Admit Weight 217 lb 6.4 oz Weight 214 lb - Physical Exam General: alert & oriented x3, appears well, no apparent distress HEENT: mucus membranes moist, normocephaly Neck: supple neck, midline trachea, no JVD/HJR, no masses, no bruit, no lymphadenopathy, no thromegaly Cardiac: regular rate and rhythm, no murmur Lungs: clear to auscultation Neuro: grossly intact, no lateralizing findings Abdomen: soft, non-tender Skin: other (incision from ICD. no drainage or signs of infection. edges well approximated.) - Labs Result Diagrams: 08/05/19 06:42 08/06/19 05:07 Troponin/CKMB CK-MB (CK-2) 0.7 ng/mL (0-6.6) 07/30/19 20:12 Troponin I 0.037 ng/mL (< 0.028) H 07/30/19 23:11 - Telemetry Sinus rhythms and dysrhythmias: sinus rhythm - Assessment/Plan Assessment/Plan: 1. Atrial flutter -rate controlled, not a likely cause of his declining EF -Started on Amiodarone and Eliquis this hospital stay. Stopped amiodarone. -possibly CTI dependent -Back in SR. For now hold amiodaroen. WIll consider Atrial ATP vs CTI ablation if recurrence seen. 2. A/C HFrEF -10-15%, recently worsened 3. BiV-ICD -site CDI, no drainage or signs of infection -continue post implant antibiotics- keflex x 7 days -sustained VT induced with catheter manipulation during upgrade, requiring defibrillaiton: supporting placement of ICD Upgrade to BiV ICD 08/05 with medtronic device for future ATP therapy. Resume eliquis 10/ evening if no hematoma or bleeding issues. Will discuss future need for ablation vs medical management. For now, with the recently started OAC , we will refrain from ablation until adequately anticoagulated x 1 month. This will also hopefully allow him time to optimize his heart failure symptoms. No amio for now.
[2019-08-06 17:10] VITALS: BP 112/63; TEMP 98.1
[2019-08-06] MEDS ORDERED: Cephalexin 250 MG CAP PO SCH (18:00)
--- NOTE | 2019-08-06 20:02 | DIS ---
DATE OF ADMISSION: 07/30/2019 DATE OF DISCHARGE: 08/06/2019 ADMITTING ATTENDING: Ashvin Francis MD DISCHARGE ATTENDING: Vera Oliver MD CONSULTATIONS: Cardiology; EP, Dr. Quezada; Dr. Shelton, Infectious Disease. PROCEDURES: The patient was taken to the [facility] on 08/05/[address] Quezada, where an AICD was placed. DIAGNOSES: 1. Acute on chronic congestive heart failure with new onset reduced ejection fraction of 10% to 15%. 2. Dilated cardiomyopathy. 3. Acute kidney injury on chronic kidney disease stage 3, improved. 4. Urinary tract infection secondary to chronic indwelling Capellan catheter. 5. Elevated troponin, improved. 6. History of chronic obstructive pulmonary disease. 7. History of atrial fibrillation and atrial flutter. 8. Status post automatic implantable cardioverter defibrillator placement and pacemaker. 9. History of prostate cancer. 10. Obstructive uropathy. 11. History of hypertension. 12. History of Mobitz type 2 heart block. DISCHARGE MEDICATIONS: 1. Acetaminophen 650 mg p.o. q.4 hours p.r.n. 2. Eliquis 5 mg p.o. b.i.d., to be resumed on 08/07/2019. 3. Atorvastatin 40 mg p.o. daily. 4. Casodex 50 mg p.o. daily. 5. Carvedilol 6.25 mg p.o. b.i.d. 6. Clopidogrel 75 mg p.o. daily. 7. Lasix 40 mg p.o. daily. 8. Hydrocodone 1 to 2 tabs p.o. q.4 hours p.r.n. for pain. 9. Imdur 30 mg p.o. daily. 10. Lisinopril 2.5 mg p.o. daily. 11. Nitrostat 0.4 mg sublingual p.r.n. 12. Oxybutynin 5 mg p.o. t.i.d. 13. Pantoprazole 40 mg p.o. daily. 14. Tamsulosin 0.4 mg p.o. daily. 15. Tramadol 50 mg p.o. q.6 hours p.r.n. for pain. DISCONTINUED MEDICATIONS: 1. Aspirin 81 mg daily. 2. Amiodarone. HISTORY OF PRESENT ILLNESS AND HOSPITAL COURSE: Mr. French is a 68-year-old male with a history of hypertension, COPD, CHF, atrial fibrillation, status post pacemaker, cardiomyopathy, prostate cancer with obstructive uropathy, who came into the [facility] ED and was found to be in CHF exacerbation with CATHERINE on top of his chronic kidney disease. The patient was transferred to [facility] and started IV Lasix therapy. His respiratory status continued to improve. On echo, he was found to have an EF of 10% to 15% with dilated cardiomyopathy. Cardiology was consulted who followed the patient and interrogated the pacemaker, which showed atrial flutter/atrial fibrillation since early April. The patient was then seen by Dr. Quezada of , who decided to put in a biventricular ICD in replacement of his pacemaker so that the patient did not have to go home on a LifeVest. The patient's CHF exacerbation improved over the hospital stay, where no crackles were auscultated in the patient's lung h[place] and symptomatically not having any shortness of breath. The patient's urinary tract infection was treated originally with Rocephin and then Zosyn. Pseudomonas was starting to grow initially in the culture. The sensitivities came back for Pseudomonas UTI resistant to all antibiotics except amikacin. At this time, I consulted Dr. Shelton after speaking with the patient's urologist at [facility], Dr. Contreras. Dr. Shelton recommended no antibiotic therapy at this time, just to discontinue the Capellan catheter. Dr. Contreras stated to leave the patient's Capellan catheter in and he will see him in clinic on 2018 at [address] a suprapubic catheter. The patient lives at [facility] and was cleared for discharge on 08/06/2019 by the Cardiology team, Dr. Quezada and Dr. Santoyo, with recommendations to discontinue aspirin and to keep the patient on Plavix and Eliquis. Eliquis is to restart on 08/07/2019. The patient was agreeable to the discharge plan. He will need to follow up outpatient with Dr. Contreras on Saturday, 08/10, and [facility] for his heart failure management and followup on the Bi-V ICD placement. DISPOSITION: The patient was stable upon discharge and eager to return back to the half-way. DISCHARGE INSTRUCTIONS: 1. Location: [facility]. 2. Diet: Heart healthy with fluid restriction of 2000 mL daily. 3. Activity: As tolerated. Please perform daily weights. 4. Follow up with primary care in 1 week's time. Follow up with Dr. Contreras, Urology, at [facility] on 08/10/2019 at 10 a.[address]. Follow up with Dr. Coreas, Cardiology. Call heart failure coordinator at [facility], at [phone] for the appointment. It is set up for 09/03 at 1 p.m. Job ID: [id number] MTDD
--- NOTE | 2019-08-06 20:29 | EKG ---
Test Reason : SPCATH Blood Pressure : / mmHG Vent. Rate : 066 BPM Atrial Rate : 066 BPM P-R Int : 124 ms QRS Dur : 184 ms QT Int : 536 ms P-R-T Axes : 063 147 -49 degrees QTc Int : 561 ms Atrial-sensed ventricular-paced rhythm Biventricular pacemaker detected Abnormal ECG No previous ECGs available Confirmed by DR. Kathie GAXIOLA MD (4) on 08/06/2019 8:29:12 PM Referred By: MOMO Confirmed By:DR. Kathie GAXIOLA MD
--- NOTE | 2019-08-06 20:37 | EKG ---
Test Reason : Blood Pressure : / mmHG Vent. Rate : 060 BPM Atrial Rate : 060 BPM P-R Int : 132 ms QRS Dur : 186 ms QT Int : 538 ms P-R-T Axes : 095 086 -57 degrees QTc Int : 538 ms AV sequential or dual chamber electronic pacemaker When compared with ECG of 30-JUL-2019 20:04, (Unconfirmed) Vent. rate has decreased BY 21 BPM Confirmed by MINOR RAMEY, . SAmanda (4) on 08/06/2019 8:36:44 PM Referred By: [facility] Confirmed By:DR. Kathie GAXIOLA MD
[2019-08-07] MEDS ORDERED: Apixaban 5 MG TAB PO SCH ×2 (21:00)
== END 2019-08-06 17:05 | DRG 226 ==
LOC: ERS 18:41 → 2NO 21:20
PROVIDERS: ADMIT Specialist; ATTEND Specialist
PROC: 0JH609Z Insertion of Cardiac Resynchronization Defibrillator Pulse Generator into Chest Subcutaneous Tissue and Fascia, Open Approach (ICD-10-PCS; principal; 2019-08-05)
PROC: 02HK3KZ Insertion of Defibrillator Lead into Right Ventricle, Percutaneous Approach (ICD-10-PCS; 2019-08-05)
PROC: 02PA3MZ Removal of Cardiac Lead from Heart, Percutaneous Approach (ICD-10-PCS; 2019-08-05)
PROC: 0JPT0PZ Removal of Cardiac Rhythm Related Device from Trunk Subcutaneous Tissue and Fascia, Open Approach (ICD-10-PCS; 2019-08-05)
DX: I13.0 Hypertensive heart and chronic kidney disease with heart failure and stage 1 through stage 4 chronic kidney disease, or unspecified chronic kidney disease (principal); I50.43 Acute on chronic combined systolic (congestive) and diastolic (congestive) heart failure; N39.0 Urinary tract infection, site not specified; T83.511A Infection and inflammatory reaction due to indwelling urethral catheter, initial encounter; N17.9 Acute kidney failure, unspecified; N13.8 Other obstructive and reflux uropathy; I48.92 Unspecified atrial flutter; N13.30 Unspecified hydronephrosis; N18.3 Chronic kidney disease, stage 3 (moderate); I48.91 Unspecified atrial fibrillation; N40.1 Benign prostatic hyperplasia with lower urinary tract symptoms; J44.9 Chronic obstructive pulmonary disease, unspecified; I42.0 Dilated cardiomyopathy; C61 Malignant neoplasm of prostate; E78.5 Hyperlipidemia, unspecified; I25.10 Atherosclerotic heart disease of native coronary artery without angina pectoris; K21.9 Gastro-esophageal reflux disease without esophagitis; B96.5 Pseudomonas (aeruginosa) (mallei) (pseudomallei) as the cause of diseases classified elsewhere; Y84.6 Urinary catheterization as the cause of abnormal reaction of the patient, or of later complication, without mention of misadventure at the time of the procedure; Z90.49 Acquired absence of other specified parts of digestive tract; Z79.82 Long term (current) use of aspirin; Z79.899 Other long term (current) drug therapy; Z79.02 Long term (current) use of antithrombotics/antiplatelets
CPT/HCPCS: 33225; 33230; 33234; 36005; 36415; 36416; 71045; 75820; 80048; 82553; 83605; 84145; 85025; 87077; 87086; 87186; 93005; 93010; 93306; 93798; 96365; 96367; 99152; C1777; C1882; J0690; J0696; J1650; J1940; J1956; J2001; J2250; J2543; J3010; J3370; J3490; Q9967

== ENCOUNTER 2024-04-06 19:45 | Inpatient (IN) | payer MEDICARE, MEDICAID ==
[2024-04-06] MEDS ORDERED: Acetaminophen 325 MG TAB PO PRN (20:00)
[2024-04-06 20:51] VITALS: BMI 30.4
[2024-04-06] MEDS: Lactated Ringer's 1,000 ML IV SCH (21:30)
[2024-04-06] MEDS ORDERED: Lactated Ringer's 1,000 ML IV SCH (21:30)
[2024-04-06] MEDS: Carvedilol 6.25 MG TAB PO SCH (23:14)
[2024-04-07 00:01] LABS: Creatinine, Urine 75.13 mg/dL (63-166); Urea Nitrogen, Random Urine Greater than 100 mg/dl
[2024-04-07] MEDS ORDERED: Nitroglycerin 0.4 MG TAB (25 Tab Bottle) SL PRN (03:49)
[2024-04-07 04:15] LABS: #Basophils Less than 0.03 10x3/uL (0.0-0.2); #Eosinphils Less than 0.03 10x3/uL (0.0-0.7); %Basophils 0.4 % (0.0-1.0); %Eosinophils 0.8 % (0.0-10.0); %Lymphocytes 35.9 % (21.0-51.0); %Monocytes 13.5 % (0.0-10.0); %Neutrophils 48.2 % (42.0-75.0); Hematocrit 28.2 % (42.0-52.0); Hemoglobin 8.9 g/dL (14.0-18.0); Mean Corpuscular HGB CONC 31.6 g/dL (32.0-36.0); Mean Corpuscular Hemoglobin 28.6 pg (27.0-31.0); Mean Corpuscular Volume 90.7 fL (78.0-98.0); Mean Platelet Volume 10.7 fL (7.4-10.4); Platelet Count 123 10x3/uL (130-400); RBC Distribution Width 14.5 % (11.5-14.5); Red Blood Cell (RBC) Count 3.11 mill/uL (4.70-6.10)
[2024-04-07 04:35] LABS: ALT (SGPT) 32 U/L (8-55); AST (SGOT) 42 U/L (5-34); Albumin 2.4 g/dL (3.4-4.8); Alkaline Phosphatase 77 U/L (40-110); Anion Gap 13 mmol/L (10-20); BUN (Urea Nitrogen) 60 mg/dL (8.4-25.7); Bilirubin, Total 0.2 mg/dL (0.2-1.2); Calc. Creatinine Clearance 17 mL/min (70-130); Calcium 9.3 mg/dL (7.8-10.44); Carbon Dioxide 18 mmol/L (23-31); Chloride 114 mmol/L (98-107); Estimated GFR 10; Globulin 3.3 g/dL (2.4-3.5); Glucose 110 mg/dL (83-110); Magnesium 1.7 mg/dL (1.6-2.6); Protein, Total 5.7 g/dL (5.8-8.1); Sodium 141 mmol/L (136-145)
[2024-04-07] MEDS: Levothyroxine Sodium 112 MCG TAB PO SCH (06:21)
[2024-04-07] MEDS ORDERED: CRAN PO SCH (09:00)
[2024-04-07] MEDS ORDERED: BROMELN PO SCH (09:00)
[2024-04-07] MEDS ORDERED: FOS PO SCH (09:00)
[2024-04-07] MEDS ORDERED: [UNRECOGNIZED DRUG - OTHER] PO SCH (09:00)
[2024-04-07] MEDS ORDERED: VITC PO SCH (09:00)
[2024-04-07] MEDS ORDERED: MANNOSE PO SCH (09:00)
[2024-04-07] MEDS: Bicalutamide 50 MG TAB PO SCH (09:34)
[2024-04-07] MEDS: Polyethylene Glycol 3350 17 GM Packet PO SCH (09:34)
[2024-04-07] MEDS: Carvedilol 6.25 MG TAB PO SCH (09:35)
[2024-04-07] MEDS: Amiodarone 200 MG TAB PO SCH ×2 (09:35→20:03)
[2024-04-07] MEDS: Isosorbide Mononitrate 30 MG ER.TAB PO SCH (09:35)
[2024-04-07] MEDS: Famotidine 20 MG TAB PO SCH (09:35)
[2024-04-07] MEDS: Furosemide 20 MG TAB PO SCH (09:36)
[2024-04-07] MEDS: Ferrous Sulfate 325 MG TAB PO SCH (09:36)
[2024-04-07] MEDS: Cholecalciferol 1,000 UNITS (25 MCG) TAB PO SCH (09:36)
[2024-04-07] MEDS: Aspirin 81 mg Enteric Coated Tablet PO SCH (09:36)
[2024-04-07] MEDS ORDERED: Epoetin (ESRD) 10,000 UNITS/ML VIAL SC SCH (12:15)
[2024-04-07] MEDS: EPOETIN ALFA-EPBX (ESRD) 10,000 UNITS/ML VIAL SC SCH (14:14)
[2024-04-07] MEDS: Atorvastatin Calcium 40 MG TAB PO SCH (20:02)
[2024-04-07] MEDS: Apixaban 2.5 MG TAB PO SCH (20:03)
[2024-04-07 20:14] LABS: Creatinine, Urine 54.85 mg/dL (63-166)
[2024-04-08 04:48] LABS: #Basophils Less than 0.03 10x3/uL (0.0-0.2); %Basophils 0.7 % (0.0-1.0); %Lymphocytes 27.4 % (21.0-51.0); %Monocytes 14.4 % (0.0-10.0); %Neutrophils 53.2 % (42.0-75.0); Hematocrit 27.7 % (42.0-52.0); Hemoglobin 8.7 g/dL (14.0-18.0); Mean Corpuscular HGB CONC 31.4 g/dL (32.0-36.0); Mean Corpuscular Hemoglobin 28.6 pg (27.0-31.0); Mean Corpuscular Volume 91.1 fL (78.0-98.0); Platelet Count 126 10x3/uL (130-400); RBC Distribution Width 14.6 % (11.5-14.5); Red Blood Cell (RBC) Count 3.04 mill/uL (4.70-6.10)
[2024-04-08 05:21] LABS: ALT (SGPT) 38 U/L (8-55); AST (SGOT) 47 U/L (5-34); Albumin 2.5 g/dL (3.4-4.8); Alkaline Phosphatase 77 U/L (40-110); Anion Gap 13 mmol/L (10-20); BUN (Urea Nitrogen) 57 mg/dL (8.4-25.7); Bilirubin, Total 0.2 mg/dL (0.2-1.2); Calc. Creatinine Clearance 18 mL/min (70-130); Calcium 9.4 mg/dL (7.8-10.44); Carbon Dioxide 20 mmol/L (23-31); Chloride 114 mmol/L (98-107); Estimated GFR 10; Globulin 3.3 g/dL (2.4-3.5); Glucose 118 mg/dL (83-110); Potassium 4.3 mmol/L (3.5-5.1); Protein, Total 5.8 g/dL (5.8-8.1); Sodium 143 mmol/L (136-145)
[2024-04-08 05:34] LABS: Iron 36 ug/dL (65-175); Iron Binding Capacity, Total 194 mcg/dL (261-462)
[2024-04-08] MEDS: Sodium Chloride 0.9% 1,000 ML IV SCH (09:15)
[2024-04-08] MEDS: Sodium Chloride 0.45% 1,000 ML IV SCH (09:18)
[2024-04-08] MEDS: Sodium Ferric Gluconate 250 MG in Sodium Chloride 0.9% 250 ML 250 ML IVPB SCH (13:00)
[2024-04-08] MEDS: Furosemide 20 MG (2 mL) VIAL SLOW IVP SCH (13:49)
[2024-04-08] MEDS: Amiodarone 200 MG TAB PO SCH (14:54)
[2024-04-09 05:07] LABS: #Basophils Less than 0.03 10x3/uL (0.0-0.2); %Basophils 0.6 % (0.0-1.0); %Eosinophils 3.7 % (0.0-10.0); %Lymphocytes 27.6 % (21.0-51.0); %Monocytes 10.4 % (0.0-10.0); %Neutrophils 55.6 % (42.0-75.0); Hematocrit 28.5 % (42.0-52.0); Hemoglobin 8.9 g/dL (14.0-18.0); Mean Corpuscular HGB CONC 31.2 g/dL (32.0-36.0); Mean Corpuscular Hemoglobin 27.9 pg (27.0-31.0); Mean Corpuscular Volume 89.3 fL (78.0-98.0); Mean Platelet Volume 11.5 fL (7.4-10.4); Platelet Count 125 10x3/uL (130-400); RBC Distribution Width 14.3 % (11.5-14.5); Red Blood Cell (RBC) Count 3.19 mill/uL (4.70-6.10)
[2024-04-09 05:25] LABS: ALT (SGPT) 35 U/L (8-55); AST (SGOT) 39 U/L (5-34); Albumin 2.6 g/dL (3.4-4.8); Alkaline Phosphatase 74 U/L (40-110); Anion Gap 13 mmol/L (10-20); BUN (Urea Nitrogen) 55 mg/dL (8.4-25.7); Bilirubin, Total 0.2 mg/dL (0.2-1.2); Calc. Creatinine Clearance 18 mL/min (70-130); Calcium 9.3 mg/dL (7.8-10.44); Carbon Dioxide 19 mmol/L (23-31); Chloride 113 mmol/L (98-107); Estimated GFR 10; Globulin 3.4 g/dL (2.4-3.5); Glucose 125 mg/dL (83-110); Potassium 4.3 mmol/L (3.5-5.1); Sodium 141 mmol/L (136-145)
[2024-04-09] MEDS: Furosemide 20 MG (2 mL) VIAL SLOW IVP SCH (09:35)
[2024-04-09] MEDS: Cholecalciferol 1,000 UNITS (25 MCG) TAB PO SCH (09:50)
[2024-04-10 04:09] LABS: #Basophils Less than 0.03 10x3/uL (0.0-0.2); %Basophils 0.3 % (0.0-1.0); %Eosinophils 2.6 % (0.0-10.0); %Lymphocytes 24.4 % (21.0-51.0); %Monocytes 15.2 % (0.0-10.0); %Neutrophils 55.5 % (42.0-75.0); Hematocrit 26.9 % (42.0-52.0); Hemoglobin 8.5 g/dL (14.0-18.0); Mean Corpuscular HGB CONC 31.6 g/dL (32.0-36.0); Mean Corpuscular Hemoglobin 28.1 pg (27.0-31.0); Mean Corpuscular Volume 89.1 fL (78.0-98.0); Mean Platelet Volume 11.5 fL (7.4-10.4); Platelet Count 124 10x3/uL (130-400); RBC Distribution Width 14.3 % (11.5-14.5); Red Blood Cell (RBC) Count 3.02 mill/uL (4.70-6.10)
[2024-04-10 04:22] LABS: ALT (SGPT) 30 U/L (8-55); AST (SGOT) 33 U/L (5-34); Albumin 2.5 g/dL (3.4-4.8); Alkaline Phosphatase 62 U/L (40-110); Anion Gap 15 mmol/L (10-20); BUN (Urea Nitrogen) 53 mg/dL (8.4-25.7); Bilirubin, Total 0.3 mg/dL (0.2-1.2); Calc. Creatinine Clearance 17 mL/min (70-130); Calcium 8.9 mg/dL (7.8-10.44); Carbon Dioxide 16 mmol/L (23-31); Chloride 111 mmol/L (98-107); Estimated GFR 10; Globulin 3.3 g/dL (2.4-3.5); Glucose 99 mg/dL (83-110); Potassium 4.4 mmol/L (3.5-5.1); Protein, Total 5.8 g/dL (5.8-8.1); Sodium 138 mmol/L (136-145)
[2024-04-10 04:42] LABS: HBSAB Concentration Less than 8.00 mIU/mL; HBsAg Index 0.26 S/CO (0-0.99); Hep B Core Total Ab NONREACTIVE (NonReactive); Hep B Core Total Index 0.39 S/CO (0-0.79); Hep B Surf AB NONREACTIVE (NonReactive); Hep B Surf Ag NONREACTIVE S/CO (NonReactive); Hep C IgG Ab NONREACTIVE S/CO (NonReactive); Hep C Index 0.13 S/CO (0-0.79)
[2024-04-10] MEDS ORDERED: Heparin 10,000 UNITS/ 10 ML VIAL ONE (09:35)
[2024-04-10] MEDS ORDERED: EPINEPHrine 1 MG/ML VIAL ONE (09:36)
[2024-04-10] MEDS ORDERED: Lidocaine 2% PF 5 ML VIAL ONE ×2 (09:36→09:40)
[2024-04-10] MEDS ORDERED: Bupivacaine 0.25% HCL 30 ML VIAL ONE (09:36)
[2024-04-10] MEDS ORDERED: PROPOFOL 20 ML ONE (09:39)
[2024-04-10] MEDS ORDERED: fentaNYL PF 100 MCG/2 ML SYRINGE ONE (09:39)
[2024-04-10] MEDS ORDERED: ePHEDrine Sulfate 50 MG/10 ML VIAL ONE (09:40)
[2024-04-10] MEDS ORDERED: PHENYLEPHRINE-NS 100 MCG/ML 10 ML SYRINGE ONE (09:40)
[2024-04-10] MEDS ORDERED: Midazolam HCl 2 mg/2 ml Vial ONE (09:40)
[2024-04-10] MEDS ORDERED: Sodium Chloride 0.9% 100 ML ONE (09:49)
[2024-04-10] MEDS ORDERED: CEFAZOLIN 2 GM VIAL ONE (09:49)
[2024-04-10] MEDS ORDERED: Epoetin (ESRD) 10,000 UNITS/ML VIAL IVP SCH (12:00)
[2024-04-10] MEDS: Tuberculin PPD 0.1 ML VIAL I-DERMAL SCH (14:32)
[2024-04-10] MEDS: EPOETIN ALFA-EPBX (ESRD) 10,000 UNITS/ML VIAL IVP SCH (17:17)
[2024-04-11 04:47] LABS: #Basophils Less than 0.03 10x3/uL (0.0-0.2); %Basophils 0.6 % (0.0-1.0); %Eosinophils 2.6 % (0.0-10.0); %Lymphocytes 21.7 % (21.0-51.0); %Neutrophils 57.7 % (42.0-75.0); Hematocrit 26.2 % (42.0-52.0); Hemoglobin 8.2 g/dL (14.0-18.0); Mean Corpuscular HGB CONC 31.3 g/dL (32.0-36.0); Mean Corpuscular Hemoglobin 27.9 pg (27.0-31.0); Mean Corpuscular Volume 89.1 fL (78.0-98.0); Mean Platelet Volume 11.4 fL (7.4-10.4); Platelet Count 121 10x3/uL (130-400); RBC Distribution Width 14.6 % (11.5-14.5); Red Blood Cell (RBC) Count 2.94 mill/uL (4.70-6.10)
[2024-04-11 05:15] LABS: ALT (SGPT) 23 U/L (8-55); AST (SGOT) 33 U/L (5-34); Albumin 2.5 g/dL (3.4-4.8); Alkaline Phosphatase 64 U/L (40-110); Anion Gap 11 mmol/L (10-20); BUN (Urea Nitrogen) 54 mg/dL (8.4-25.7); Bilirubin, Total 0.2 mg/dL (0.2-1.2); Calc. Creatinine Clearance 17 mL/min (70-130); Carbon Dioxide 19 mmol/L (23-31); Chloride 114 mmol/L (98-107); Estimated GFR 9; Globulin 3.2 g/dL (2.4-3.5); Glucose 109 mg/dL (83-110); Potassium 4.1 mmol/L (3.5-5.1); Protein, Total 5.7 g/dL (5.8-8.1); Sodium 140 mmol/L (136-145)
[2024-04-12 04:37] LABS: #Basophils Less than 0.03 10x3/uL (0.0-0.2); %Basophils 0.3 % (0.0-1.0); %Eosinophils 2.6 % (0.0-10.0); %Lymphocytes 24.1 % (21.0-51.0); %Monocytes 14.2 % (0.0-10.0); %Neutrophils 56.7 % (42.0-75.0); Hematocrit 27.4 % (42.0-52.0); Hemoglobin 8.6 g/dL (14.0-18.0); Mean Corpuscular HGB CONC 31.4 g/dL (32.0-36.0); Mean Corpuscular Hemoglobin 28.2 pg (27.0-31.0); Mean Corpuscular Volume 89.8 fL (78.0-98.0); Platelet Count 131 10x3/uL (130-400); RBC Distribution Width 14.6 % (11.5-14.5); Red Blood Cell (RBC) Count 3.05 mill/uL (4.70-6.10)
[2024-04-12 05:12] LABS: ALT (SGPT) 18 U/L (8-55); AST (SGOT) 40 U/L (5-34); Albumin 2.7 g/dL (3.4-4.8); Alkaline Phosphatase 64 U/L (40-110); Anion Gap 13 mmol/L (10-20); BUN (Urea Nitrogen) 53 mg/dL (8.4-25.7); Bilirubin, Total 0.2 mg/dL (0.2-1.2); Calc. Creatinine Clearance 16 mL/min (70-130); Calcium 9.4 mg/dL (7.8-10.44); Carbon Dioxide 17 mmol/L (23-31); Chloride 114 mmol/L (98-107); Estimated GFR 9; Globulin 3.4 g/dL (2.4-3.5); Glucose 112 mg/dL (83-110); Magnesium 1.7 mg/dL (1.6-2.6); Potassium 4.2 mmol/L (3.5-5.1); Protein, Total 6.1 g/dL (5.8-8.1); Sodium 140 mmol/L (136-145)
[2024-04-12] MEDS ORDERED: Apixaban 5 MG TAB PO SCH (09:00)
[2024-04-12] MEDS: Magnesium 2 GM/50 ML(in water) 2 GM in Premix 1 BAG IVPB SCH (09:09)
[2024-04-12] MEDS ORDERED: Bupivacaine PF 0.5% 30 ML VIAL ONE (13:42)
[2024-04-12] MEDS ORDERED: EPINEPHrine 1 MG/ML VIAL ONE (13:42)
[2024-04-12] MEDS ORDERED: Heparin 10,000 UNITS/ 10 ML VIAL ONE (13:42)
[2024-04-12] MEDS ORDERED: Ketamine In 0.9 % NaCl 50 MG/5 ML SYRINGE ONE (13:53)
[2024-04-12] MEDS ORDERED: Midazolam HCl 2 mg/2 ml Vial ONE ×2 (13:58→15:37)
[2024-04-12] MEDS ORDERED: Sodium Chloride 0.9% 100 ML ONE (14:12)
[2024-04-12] MEDS ORDERED: CEFAZOLIN 2 GM VIAL ONE (14:12)
[2024-04-12] MEDS ORDERED: PROPOFOL 20 ML ONE (15:41)
[2024-04-12] MEDS ORDERED: Ipratropium/Albuterol 3 ML NEB ONE (16:01)
[2024-04-12] MEDS ORDERED: fentaNYL 50 mcg/mL 1 mL Vial ONE ×2 (16:08→16:13)
[2024-04-12] MEDS ORDERED: Promethazine HCl 25 MG/ML VIAL ONE (16:11)
[2024-04-12 18:46] LABS: Magnesium 2.2 mg/dL (1.6-2.6)
[2024-04-12] MEDS: Carvedilol 6.25 MG TAB PO SCH (22:57)
[2024-04-13] MEDS: hydrALAZINE 20 MG/ML VIAL SLOW IVP PRN (04:59)
[2024-04-13 05:39] LABS: #Basophils Less than 0.03 10x3/uL (0.0-0.2); %Basophils 0.3 % (0.0-1.0); %Eosinophils 3.3 % (0.0-10.0); %Lymphocytes 18.5 % (21.0-51.0); %Monocytes 13.8 % (0.0-10.0); Hematocrit 25.6 % (42.0-52.0); Hemoglobin 8.1 g/dL (14.0-18.0); Mean Corpuscular HGB CONC 31.6 g/dL (32.0-36.0); Mean Corpuscular Hemoglobin 29.1 pg (27.0-31.0); Mean Corpuscular Volume 92.1 fL (78.0-98.0); Platelet Count 142 10x3/uL (130-400); Red Blood Cell (RBC) Count 2.78 mill/uL (4.70-6.10)
[2024-04-13 06:55] LABS: ALT (SGPT) 13 U/L (8-55); AST (SGOT) 43 U/L (5-34); Albumin 2.6 g/dL (3.4-4.8); Alkaline Phosphatase 57 U/L (40-110); Anion Gap 15 mmol/L (10-20); BUN (Urea Nitrogen) 51 mg/dL (8.4-25.7); Bilirubin, Total 0.3 mg/dL (0.2-1.2); Calc. Creatinine Clearance 16 mL/min (70-130); Calcium 9.1 mg/dL (7.8-10.44); Carbon Dioxide 18 mmol/L (23-31); Chloride 114 mmol/L (98-107); Estimated GFR 9; Globulin 3.1 g/dL (2.4-3.5); Glucose 92 mg/dL (83-110); Protein, Total 5.7 g/dL (5.8-8.1); Sodium 143 mmol/L (136-145)
[2024-04-13] MEDS ORDERED: EPINEPHrine 1 MG/10 ML Abboject SYRINGE ONE (11:07)
[2024-04-13] MEDS ORDERED: Sodium Bicarb 50 MEQ/50 ML Abboject 8.4% SYRINGE ONE (11:07)
[2024-04-13] MEDS ORDERED: Calcium Chloride 1 GM/10 ML Abboject SYRINGE ONE (11:07)
[2024-04-13] MEDS ORDERED: Propofol 1,000 MG/100 ML VIAL IV PRN (11:30)
[2024-04-13] MEDS ORDERED: Propofol BOLUS 1,000 MG/100 ML VIAL IV PRN (11:30)
[2024-04-13] MEDS ORDERED: Morphine 2 MG/ML VIAL SLOW IVP PRN (11:30)
[2024-04-13] MEDS ORDERED: Fentanyl BOLUS 250 ML IVPB PRN (11:30)
[2024-04-13] MEDS ORDERED: Vecuronium 10 MG VIAL IVP PRN (11:41)
[2024-04-13] MEDS: Fentanyl CADD 100 ML IV SCH (11:55)
[2024-04-13] MEDS: NOREPINEPHRINE 8 MG/250 ML-D5W 250 ML ONE (11:58)
[2024-04-13] MEDS: Fentanyl CADD 100 ML ONE (11:58)
[2024-04-13] MEDS ORDERED: NOREPINEPHRINE 8 MG/250 ML-D5W 250 ML IVPB SCH (12:00)
[2024-04-13] MEDS: Lorazepam 2 MG/ML VIAL SLOW IVP PRN (12:01)
[2024-04-13] MEDS ORDERED: Acetaminophen 650 MG Suppository PR PRN (12:10)
[2024-04-13] MEDS ORDERED: Ipratropium/Albuterol 3 ML NEB NEB PRN (12:10)
[2024-04-13] MEDS ORDERED: Dextrose 50% Abboject 50 ML SYRINGE SLOW IVP PRN (12:12)
[2024-04-13] MEDS ORDERED: Dextrose 5% in Water 1,000 ML IV PRN (12:12)
[2024-04-13] MEDS ORDERED: Glucagon 1 MG/ML KIT IM PRN (12:12)
[2024-04-13 12:16] LABS: Hematocrit 21.2 % (42.0-52.0); Hemoglobin 6.5 g/dL (14.0-18.0); Mean Corpuscular HGB CONC 30.7 g/dL (32.0-36.0); Mean Corpuscular Hemoglobin 29.7 pg (27.0-31.0); Mean Corpuscular Volume 96.8 fL (78.0-98.0); Mean Platelet Volume 11.9 fL (7.4-10.4); Platelet Count 151 10x3/uL (130-400); RBC Distribution Width 14.7 % (11.5-14.5); Red Blood Cell (RBC) Count 2.19 mill/uL (4.70-6.10)
[2024-04-13 12:23] LABS: ALT (SGPT) 11 U/L (8-55); AST (SGOT) 37 U/L (5-34); Albumin 1.8 g/dL (3.4-4.8); Alkaline Phosphatase 45 U/L (40-110); Anion Gap 17 mmol/L (10-20); BUN (Urea Nitrogen) 49 mg/dL (8.4-25.7); Bilirubin, Total 0.2 mg/dL (0.2-1.2); Calc. Creatinine Clearance 17 mL/min (70-130); Calcium 9.5 mg/dL (7.8-10.44); Carbon Dioxide 18 mmol/L (23-31); Chloride 114 mmol/L (98-107); Estimated GFR 9; Globulin 2.1 g/dL (2.4-3.5); Glucose 199 mg/dL (83-110); Magnesium 2.2 mg/dL (1.6-2.6); Protein, Total 3.9 g/dL (5.8-8.1); Sodium 145 mmol/L (136-145)
[2024-04-13 12:35] LABS: Actual Bicarbonate (HCO3a) 19.8 mEq/L (22-28); Base Excess (BEa) -3.8 mEq/L (-2.0 to +3.0); CO2 Tension 30.5 mmHg (35.0-45.0); Calcium, Ionized (arterial) 1.27 mmol/L (1.12-1.30); Carboxyhemoglobin (COHb) 0.8 gm% (0.0-3.0); Hematocrit-ABG 27 % (42.0-52.0); Hemoglobin (Hb) 9.2 g/dL (14.0-18.0)
[2024-04-13 12:36] LABS: ALV-art Gradient 158.075 mmHg (0-20); Puncture Site LRA
[2024-04-13 13:08] LABS: #Basophils Less than 0.03 10x3/uL (0.0-0.2); %Basophils 0.4 % (0.0-1.0); %Eosinophils 1.9 % (0.0-10.0); %Lymphocytes 7.1 % (21.0-51.0); %Monocytes 10.2 % (0.0-10.0); %Neutrophils 78.3 % (42.0-75.0); Hematocrit 26.9 % (42.0-52.0); Hemoglobin 8.6 g/dL (14.0-18.0); Mean Corpuscular Hemoglobin 29.5 pg (27.0-31.0); Mean Corpuscular Volume 92.1 fL (78.0-98.0); Mean Platelet Volume 11.2 fL (7.4-10.4); Platelet Count 124 10x3/uL (130-400); RBC Distribution Width 14.5 % (11.5-14.5); Red Blood Cell (RBC) Count 2.92 mill/uL (4.70-6.10)
[2024-04-13] MEDS: fentaNYL 50 mcg/mL 1 mL Vial ONE (13:25)
[2024-04-13] MEDS: fentaNYL 50 mcg/mL 1 mL Vial SLOW IVP SCH (13:25)
[2024-04-13] MEDS: EPOETIN ALFA-EPBX (ESRD) 10,000 UNITS/ML VIAL IVP SCH (14:41)
[2024-04-13] MEDS: EPOETIN ALFA-EPBX (ESRD) 40,000 UNITS/ML VIAL IVP SCH (14:44)
[2024-04-13 15:11] LABS: Anion Gap 20 mmol/L (10-20); BUN (Urea Nitrogen) 50 mg/dL (8.4-25.7); Calc. Creatinine Clearance 16 mL/min (70-130); Calcium 9.6 mg/dL (7.8-10.44); Carbon Dioxide 16 mmol/L (23-31); Chloride 115 mmol/L (98-107); Estimated GFR 9; Glucose 114 mg/dL (83-110); Potassium 4.6 mmol/L (3.5-5.1); Sodium 146 mmol/L (136-145)
[2024-04-13 17:33] LABS: Hematocrit 28.8 % (42.0-52.0); Hemoglobin 9.4 g/dL (14.0-18.0); Mean Corpuscular HGB CONC 32.6 g/dL (32.0-36.0); Mean Corpuscular Hemoglobin 30.2 pg (27.0-31.0); Mean Corpuscular Volume 92.6 fL (78.0-98.0); Mean Platelet Volume 10.9 fL (7.4-10.4); Platelet Count 120 10x3/uL (130-400); RBC Distribution Width 14.6 % (11.5-14.5); Red Blood Cell (RBC) Count 3.11 mill/uL (4.70-6.10)
[2024-04-14 06:49] LABS: #Basophils Less than 0.03 10x3/uL (0.0-0.2); #Eosinphils Less than 0.03 10x3/uL (0.0-0.7); %Basophils 0.2 % (0.0-1.0); %Eosinophils 0.2 % (0.0-10.0); %Lymphocytes 13.8 % (21.0-51.0); %Monocytes 15.7 % (0.0-10.0); %Neutrophils 69.5 % (42.0-75.0); Hematocrit 25.2 % (42.0-52.0); Hemoglobin 8.5 g/dL (14.0-18.0); Mean Corpuscular HGB CONC 33.7 g/dL (32.0-36.0); Mean Corpuscular Hemoglobin 30.2 pg (27.0-31.0); Mean Corpuscular Volume 89.7 fL (78.0-98.0); Mean Platelet Volume 11.4 fL (7.4-10.4); Platelet Count 108 10x3/uL (130-400); RBC Distribution Width 15.1 % (11.5-14.5); Red Blood Cell (RBC) Count 2.81 mill/uL (4.70-6.10)
[2024-04-14 07:07] LABS: ALT (SGPT) 6 U/L (8-55); AST (SGOT) 43 U/L (5-34); Albumin 2.4 g/dL (3.4-4.8); Alkaline Phosphatase 50 U/L (40-110); Anion Gap 15 mmol/L (10-20); BUN (Urea Nitrogen) 55 mg/dL (8.4-25.7); Bilirubin, Total 0.4 mg/dL (0.2-1.2); Calc. Creatinine Clearance 15 mL/min (70-130); Calcium 9.4 mg/dL (7.8-10.44); Carbon Dioxide 18 mmol/L (23-31); Chloride 115 mmol/L (98-107); Estimated GFR 8; Globulin 2.9 g/dL (2.4-3.5); Glucose 104 mg/dL (83-110); Potassium 4.6 mmol/L (3.5-5.1); Protein, Total 5.3 g/dL (5.8-8.1); Sodium 143 mmol/L (136-145)
[2024-04-14] MEDS: Aspirin Chewable 81 MG TAB PO SCH (08:30)
[2024-04-14] MEDS ORDERED: Morphine 4 MG/ML VIAL SLOW IVP SCH (10:45)
[2024-04-14] MEDS: Lorazepam 2 MG/ML VIAL SLOW IVP PRN (11:46)
[2024-04-14] MEDS: Morphine 4 MG/ML VIAL SLOW IVP PRN (11:47)
[2024-04-14] MEDS: Scopolamine 1 mg/72 hour Patch TD SCH (14:17)
[2024-04-14 18:50] VITALS: BMI 30.9
[2024-04-14 20:31] VITALS: BP 145/96; TEMP 97.7
[2024-04-15] MEDS ORDERED: EPOETIN ALFA-EPBX (ESRD) 10,000 UNITS/ML VIAL IVP SCH (12:00)
== END 2024-04-15 06:51 | disposition expired ==
LOC: 2SW 19:45 → OBSVTOIN 20:00 → 2NO 04-12 21:08 → CCU 04-13 11:41 → SURG A 04-14 14:03
PROVIDERS: ADMIT Family Medicine; ATTEND Family Medicine
PROC: 0JH63XZ Insertion of Tunneled Vascular Access Device into Chest Subcutaneous Tissue and Fascia, Percutaneous Approach (ICD-10-PCS; principal; 2024-04-10)
PROC: 02HV33Z Insertion of Infusion Device into Superior Vena Cava, Percutaneous Approach (ICD-10-PCS; 2024-04-10)
PROC: B548ZZA Ultrasonography of Superior Vena Cava, Guidance (ICD-10-PCS; 2024-04-10)
PROC: 3E043XZ Introduction of Vasopressor into Central Vein, Percutaneous Approach (ICD-10-PCS; 2024-04-10)
PROC: 0JH63XZ Insertion of Tunneled Vascular Access Device into Chest Subcutaneous Tissue and Fascia, Percutaneous Approach (ICD-10-PCS; 2024-04-12)
PROC: 30233N1 Transfusion of Nonautologous Red Blood Cells into Peripheral Vein, Percutaneous Approach (ICD-10-PCS; 2024-04-13)
PROC: 5A1945Z Respiratory Ventilation, 24-96 Consecutive Hours (ICD-10-PCS; 2024-04-13)
PROC: 30233K1 Transfusion of Nonautologous Frozen Plasma into Peripheral Vein, Percutaneous Approach (ICD-10-PCS; 2024-04-13)
PROC: 4A033R1 Measurement of Arterial Saturation, Peripheral, Percutaneous Approach (ICD-10-PCS; 2024-04-13)
PROC: 0BH17EZ Insertion of Endotracheal Airway into Trachea, Via Natural or Artificial Opening (ICD-10-PCS; 2024-04-13)
PROC: 5A12012 Performance of Cardiac Output, Single, Manual (ICD-10-PCS; 2024-04-13)
DX: I47.20 Ventricular tachycardia, unspecified (principal); J96.01 Acute respiratory failure with hypoxia; I21.A1 Myocardial infarction type 2; N18.6 End stage renal disease; I13.2 Hypertensive heart and chronic kidney disease with heart failure and with stage 5 chronic kidney disease, or end stage renal disease; D62 Acute posthemorrhagic anemia; N17.9 Acute kidney failure, unspecified; I50.22 Chronic systolic (congestive) heart failure; E87.20 Acidosis, unspecified; D61.818 Other pancytopenia; I97.638 Postprocedural hematoma of a circulatory system organ or structure following other circulatory system procedure; Z66 Do not resuscitate; Z51.5 Encounter for palliative care; R57.0 Cardiogenic shock; I48.91 Unspecified atrial fibrillation; E03.9 Hypothyroidism, unspecified; Z95.0 Presence of cardiac pacemaker; Z98.890 Other specified postprocedural states; J44.9 Chronic obstructive pulmonary disease, unspecified; C61 Malignant neoplasm of prostate; I46.9 Cardiac arrest, cause unspecified; Z79.899 Other long term (current) drug therapy; Z79.01 Long term (current) use of anticoagulants; Z79.82 Long term (current) use of aspirin; D63.1 Anemia in chronic kidney disease; I25.5 Ischemic cardiomyopathy; F03.90 Unspecified dementia, unspecified severity, without behavioral disturbance, psychotic disturbance, mood disturbance, and anxiety; R57.8 Other shock; Z99.2 Dependence on renal dialysis
CPT/HCPCS: 36415; 36416; 36430; 36600; 71045; 74018; 76770; 80053; 82306; 82570; 82728; 82805; 83540; 83550; 83735; 83970; 84100; 84156; 84540; 85025; 86580; 86704; 86706; 86803; 86850; 86900; 86901; 86922; 87340; 93005; 93010; 93306; 94002; 94003; A6258; C1752; J0171; J0360; J0665; J1644; J1940; J2001; J2060; J2250; J2270; J2550; J2704; J2916; J3010; J3475; J3490; J7050; J7120; J7620; P9016; P9048; Q5105